=== PATIENT | male | born 1965 | race Caucasian/White ===

== ENCOUNTER → 2024-06-21 15:44 | Outpatient (REF) | payer OTHER, SELFPAY | LOC: HWRCS 15:44 | PROVIDERS: ATTENDING PHYSICIAN Nurse Practitioner Family | DX: L98.9 Disorder of the skin and subcutaneous tissue, unspecified (principal) | CPT/HCPCS: 93306 ==

== ENCOUNTER 2024-09-09 06:49 | Day surgery (SDC) | payer OTHER, SELFPAY | END 2024-09-09 09:08 | disposition home or self-care (01) | LOC: CATH 06:49 | PROVIDERS: ATTENDING PHYSICIAN Internal Medicine Cardiovascular Disease; FAMILY PHYSICIAN Nurse Practitioner Family; OTHER PHYSICIAN Internal Medicine Cardiovascular Disease | DX: I08.1 Rheumatic disorders of both mitral and tricuspid valves (principal); I70.0 Atherosclerosis of aorta | CPT/HCPCS: 93312; 93320; 93325 ==

== ENCOUNTER → 2024-09-16 13:26 | Outpatient (REF) | payer OTHER, SELFPAY | LOC: RCS 13:26 | PROVIDERS: ATTENDING PHYSICIAN Internal Medicine Cardiovascular Disease; FAMILY PHYSICIAN Nurse Practitioner Family | DX: I34.0 Nonrheumatic mitral (valve) insufficiency (principal) | CPT/HCPCS: 93017; 93350 ==

== ENCOUNTER → 2024-11-25 14:55 | Outpatient (REF) | payer OTHER, SELFPAY | LOC: RAD 14:55 | PROVIDERS: ATTENDING PHYSICIAN Thoracic Surgery (Cardiothoracic Vascular Surgery); FAMILY PHYSICIAN Nurse Practitioner Family | DX: I34.0 Nonrheumatic mitral (valve) insufficiency (principal); Z01.818 Encounter for other preprocedural examination | CPT/HCPCS: 71275; 74174; Q9967 ==

== ENCOUNTER 2024-11-28 06:25 | Day surgery (SDC) | payer OTHER, SELFPAY ==
[2024-11-28] VITALS (9 sets, daily range): BP systolic 109–129; BP diastolic 68–91; BMI 27.4
[2024-11-28] MEDS: LOW STRENGTH ASPIRIN 324 MG PO (07:00)
[2024-11-28] MEDS: NSS 500 IV (07:16)
--- NOTE | 2024-11-28 09:49 | ITS.CL.CATH ---
Crew Lead - Catheterization
Cardiac Catheterization
Procedure Report:
LEFT HEART CATHETERIZATION
Date of Procedure: November 28, 2024
Referring: Dr. Denton Jean Baptiste and Dr. Gabriele Schultz
PROCEDURES:
1. Coronary angiography
INDICATION: Severe mitral regurgitation
ACCESS: Right radial artery, 6 Swedish sheath
HEMODYNAMICS : (mmHg)
AO (s/d) : 94/69, 80
CORONARY FINDINGS
DOMINANCE: Right
LEFT MAIN: Short and unobstructed and cannulated with a JL 4 diagnostic catheter
LEFT ANTERIOR DESCENDING: The LAD arises normally from the left main and runs in the anterior interventricular groove. The LAD is widely patent over its course
CIRCUMFLEX: The circumflex is a large-caliber nondominant vessel supplying a small OM1 and OM 2. The circumflex terminates in a sizable terminal obtuse marginal branch which is widely patent
RIGHT CORONARY ARTERY: The right coronary artery is a large-caliber dominant vessel cannulated with an AR mod catheter. The RCA is widely patent and the PDA is large
RADIATION SUMMARY: Fluoro Time (min): 6.1, Dose (mGy): 346, DAP (Gy.cm2) : 24.0
Closure Device: TR band
CONCLUSIONS
1. Nonobstructive coronary disease
RECOMMENDATIONS
1. Planned surgery for mitral regurgitation early in December
Copy to: Dr. Gabriele Schultz
[2024-11-28] MEDS: TYLENOL 650 MG PO (09:55)
[2024-11-28] MEDS: NSS 1000 IV (10:15)
== END 2024-11-28 12:31 | disposition home or self-care (01) ==
LOC: CATH 06:25
PROVIDERS: ATTENDING PHYSICIAN Internal Medicine Interventional Cardiology; FAMILY PHYSICIAN Nurse Practitioner Family; OTHER PHYSICIAN Internal Medicine Cardiovascular Disease
DX: I34.0 Nonrheumatic mitral (valve) insufficiency (principal); I25.10 Atherosclerotic heart disease of native coronary artery without angina pectoris; G47.33 Obstructive sleep apnea (adult) (pediatric)
CPT/HCPCS: 93454; C1894; Q9967

== ENCOUNTER 2024-12-20 04:56 | Inpatient (IN) | payer OTHER, SELFPAY ==
[2024-11-21 12:05] VITALS: BMI 28.4
[2024-11-21 12:35] LABS: % Basophils 0.5 % (0-2); % Eosinophils 2.4 % (0-6); % Immature Granulocytes 0.2 % (0-0.5); % Lymphocytes 29.4 % (20.5-51.1); % Monocytes 7.2 % (1.7-9.3); % Neutrophils 60.3 % (42.2-75.2); Absolute Basophils 0.1 10^3/uL (0-0.2); Absolute Eosinophils 0.2 10^3/uL (0-0.7); Absolute Lymphocytes 2.8 10^3/uL (1.2-3.4); Absolute Monocytes 0.7 10^3/uL (0.1-0.6); Absolute Neutrophils 5.8 10^3/uL (1.4-6.5); Hematocrit 43.7 % (39.0-52.0); Mean Corp Hgb Conc. 34.3 g/dL (33.0-37.0); Mean Corpuscular Hgb 30.8 pg (27.0-31.0); Mean Corpuscular Volume 89.7 fL (80.0-94.0); Mean Platelet Volume 9.5 fL (7.4-10.4); Nucleated Red Blood Cells % 0 % (-); Platelet Count 259 10^3/uL (130-400); Red Blood Cell Count 4.87 10^6/uL (4.70-6.10); Red Cell Dist. Width 12.2 % (11.5-14.5); White Blood Cell Count 9.6 10^3/uL (4.8-10.8)
[2024-11-21 12:47] LABS: INR 1.04; PT 13.9 Sec (11.4-14.6)
[2024-11-21 13:04] LABS: ALT (SGPT) 23 U/L (0-50); AST (SGOT) 22 U/L (17-59); Albumin 4.3 g/dl (3.5-5.0); Alkaline Phosphatase 65 U/L (38-126); Blood Urea Nitrogen 17 mg/dl (9-20); Calcium 9.1 mg/dl (8.4-10.2); Carbon Dioxide 27 mmol/L (22-30); Chloride 100 mmol/L (98-107); Estimated Creatinine Clearance 84 ml/min; Glucose 83 mg/dl (70-99); Potassium 4.6 mmol/L (3.5-5.1); Sodium 135 mmol/L (135-145); Total Bilirubin 0.5 mg/dl (0.2-1.3); eGFR > 60.00
--- NOTE | 2024-11-21 13:17 | CM ---
Met with and Mrs. Webb in [facility]. He states prior to admission he resides with his spouse in a spilt-level home with six steps to enter. He states he has six steps to get to his bedroom and full bathroom. The powder room is on the first
floor and he has six steps to get to the lower level. He states prior to admission he was independent with ambulation and adls. He states he does not have any DME in the home. He states he has a prescription plan. His spouse states she works from
home and will be available to assist in his care if needed. The discharge plan is to return home with his spouse and a home visit by the Transitional Care Nurse when medically stable.
We reviewed pre-op and post- op routines. We reviewed the shower instructions. He has the soap, written instructions and the Cardiothoracic Thoracic Surgery Educational Booklet. We also reviewed restrictions including lifting and driving
restrictions. We discussed a home visit by the Transitional Care Nurse. He is agreeable to a home visit. The plan is for HP Mitral Valve Repair on 12/20/24.
[2024-11-21 13:30] LABS: Urine Albumin Negative (Neg - Trace); Urine Bilirubin Negative (Negative); Urine Character Clear (Clear); Urine Color Yellow; Urine Glucose Negative (Negative); Urine Ketone Negative (Negative); Urine Leukocyte Negative (Negative); Urine Nitrite Negative (Negative); Urine Occult Blood Negative (Negative); Urine Urobilinogen Negative (Neg - 1+)
[2024-11-21 15:17] LABS: Glycohemoglobin (HgbA1c) 5.7 % (4.0-5.6)
[2024-12-20 05:01] VITALS: BP 141/98
[2024-12-20 05:04] VITALS: BP 138/98
[2024-12-20 05:17] VITALS: BMI 26.5
[2024-12-20] MEDS: BACTROBAN 2% OINTMENT 1 APPLIC NASAL ×2 (05:25→19:28)
[2024-12-20] MEDS: LOPRESSOR 25 MG PO (05:25)
[2024-12-20] MEDS: PROTONIX 40 MG PO (05:25)
[2024-12-20] MEDS: MAGNESIUM OXIDE 500 MG PO (05:25)
--- NOTE | 2024-12-20 05:47 | PTCARENOTE ---
pt admitted into CVICU room 2266. pt confirmed 2 showers at home. pt clipped and prepped for CVOR. pre-op meds given. pre-op education provided. all questions answered. assistant construction superintendent to CVOR.
--- NOTE | 2024-12-20 06:22 | W.CVOR.SURPR ---
CVOR Surgeon Immed Pre Op
-
I have examined this patient prior to performance of the scheduled procedure.
The patient's condition is unchanged from the time of the dictated/written History and
Physical and the patient is able to undergo the scheduled procedure.
MV repair + TV repair +/- IWONA Clip
[2024-12-20 07:41] LABS: ACT+ - POC 87 Seconds (82-134)
[2024-12-20 08:12] LABS: Urine Albumin 1+ (Neg - Trace); Urine Bilirubin Negative (Negative); Urine Character Clear (Clear); Urine Color Yellow; Urine Glucose Negative (Negative); Urine Ketone Negative (Negative); Urine Leukocyte Negative (Negative); Urine Nitrite Negative (Negative); Urine Occult Blood Negative (Negative); Urine Urobilinogen Negative (Neg - 1+)
[2024-12-20 08:46] LABS: Urine Amorphous Seen
[2024-12-20 08:46] LABS: ACT+ - POC 435 Seconds (82-134)
[2024-12-20 08:47] LABS: Urine Red Blood Cell 0-2 /HPF (0-2); Urine White Cell 0-2 /HPF (0-5)
[2024-12-20 09:11] LABS: B.E. - POC -0.4 mmol/L; Glucose - POC 111 mg/dl (70-99); HCO3 - POC 25 mmol/L (21-28); Hematocrit - POC 37 % PCV (42-52); Hemodilution- POC Yes; Hemoglobin Calculated - POC 12.4; Ionized Calcium - POC 1.25 mmol/L (1.15-1.33); O2 Saturation %Calculated-POC 99.8 % (94-98); PCO2 - POC 41 mmHg (35-48); PO2 - POC 227 mmHg (83-108); POC Comment PRE; Potassium - POC 4.1 mmol/L (3.5-5.1); Sodium - POC 139 mmol/L (136-145); Specimen Type - POC Arterial; pH - POC 7.39 (7.35-7.45)
[2024-12-20 09:24] LABS: ACT+ - POC 581 Seconds (82-134)
[2024-12-20 09:46] LABS: B.E. - POC -0.5 mmol/L; Glucose - POC 163 mg/dl (70-99); HCO3 - POC 25 mmol/L (21-28); Hematocrit - POC 26 % PCV (42-52); Hemodilution- POC Yes; Hemoglobin Calculated - POC 8.7; Ionized Calcium - POC 1.06 mmol/L (1.15-1.33); PCO2 - POC 44 mmHg (35-48); PO2 - POC 384 mmHg (83-108); POC Comment CPB; Potassium - POC 5.7 mmol/L (3.5-5.1); Sodium - POC 133 mmol/L (136-145); Specimen Type - POC Arterial; pH - POC 7.36 (7.35-7.45)
[2024-12-20 09:55] LABS: ACT+ - POC 550 Seconds (82-134)
[2024-12-20 09:59] LABS: B.E. - POC -1.4 mmol/L; Glucose - POC 173 mg/dl (70-99); HCO3 - POC 27 mmol/L (21-28); Hematocrit - POC 29 % PCV (42-52); Hemodilution- POC Yes; Hemoglobin Calculated - POC 9.7; O2 Saturation %Calculated-POC 97.7 % (94-98); PCO2 - POC 67 mmHg (35-48); PO2 - POC 122 mmHg (83-108); POC Comment CPB; Sodium - POC 139 mmol/L (136-145); Specimen Type - POC Arterial; pH - POC 7.22 (7.35-7.45)
[2024-12-20 10:14] LABS: ACT+ - POC 527 Seconds (82-134)
--- NOTE | 2024-12-20 10:35 | CM ---
pt in OR today, cm following
[2024-12-20 10:43] LABS: ACT+ - POC 459 Seconds (82-134)
[2024-12-20] MEDS: ANCEF 10 IV ×2 (10:45→12:07)
[2024-12-20 10:53] LABS: B.E. - POC -2.6 mmol/L; Glucose - POC 138 mg/dl (70-99); HCO3 - POC 23 mmol/L (21-28); Hematocrit - POC 27 % PCV (42-52); Hemodilution- POC Yes; Hemoglobin Calculated - POC 9.3; Ionized Calcium - POC 3.64 mmol/L (1.15-1.33); O2 Saturation %Calculated-POC 99.9 % (94-98); PCO2 - POC 40 mmHg (35-48); PO2 - POC 297 mmHg (83-108); POC Comment WARM; Potassium - POC 4.8 mmol/L (3.5-5.1); Sodium - POC 138 mmol/L (136-145); Specimen Type - POC Arterial; pH - POC 7.36 (7.35-7.45)
[2024-12-20 10:53] LABS: B.E. - POC -0.4 mmol/L; Glucose - POC 149 mg/dl (70-99); HCO3 - POC 26 mmol/L (21-28); Hematocrit - POC 29 % PCV (42-52); Hemodilution- POC Yes; Hemoglobin Calculated - POC 9.8; Ionized Calcium - POC 1.15 mmol/L (1.15-1.33); PCO2 - POC 47 mmHg (35-48); PO2 - POC 403 mmHg (83-108); POC Comment CPB; Potassium - POC 4.8 mmol/L (3.5-5.1); Sodium - POC 138 mmol/L (136-145); Specimen Type - POC Arterial; pH - POC 7.35 (7.35-7.45)
[2024-12-20 10:58] LABS: ACT+ - POC 104 Seconds (82-134)
[2024-12-20 11:16] LABS: B.E. - POC -2.5 mmol/L; Glucose - POC 121 mg/dl (70-99); HCO3 - POC 24 mmol/L (21-28); Hematocrit - POC 33 % PCV (42-52); Hemodilution- POC Yes; Hemoglobin Calculated - POC 11.1; Ionized Calcium - POC 1.45 mmol/L (1.15-1.33); O2 Saturation %Calculated-POC 95.4 % (94-98); PCO2 - POC 51 mmHg (35-48); PO2 - POC 88 mmHg (83-108); POC Comment POST; Potassium - POC 3.8 mmol/L (3.5-5.1); Sodium - POC 141 mmol/L (136-145); Specimen Type - POC Arterial; pH - POC 7.29 (7.35-7.45)
--- NOTE | 2024-12-20 11:29 | W.PN.CT.SURG ---
CT Surgery Operative Note
-
CARDIAC SURGERY OPERATIVE REPORT
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
Postoperative Diagnosis: Same
Procedure(s) Performed:
1. Right mini thoracotomy with right femoral artery and vein cannulation under KORIN guidance
2. Radical mitral valve repair (triangular resection of the medial segment of P2 and imbrication of P2 onto P3, free edge remodeling, single [place] cord to the posterior medial papillary muscle head to P2 and P3, 34 mm band annuloplasty)
3. Placement temporary ventricular pacing wires
4. Trans esophageal echocardiography
5. Atrial septal defect closure [PFO closure]
6. Left atrial appendage exclusion [35 mm clip]
Date of Surgery: 12/20/2024
Comorbidities:
1. 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
2. Obstructive sleep apnea
3. BPH
4. Atrial septal defect
5. Severe mitral valve insufficiency, symptomatic
Attending Surgeon: Denton Jean Baptiste MD, MS
Assistants: Delia Ford PA-C (present and necessary for retraction, suctioning, exposure, suture management, wound closure, etc. under my direction)
Anesthesiology: Angel Clinton MD and Sirni Maldonado CRNA
Scrub and Circulating RNs: Betty Marie RN, Ayush Paredes RN
Production Support Analyst: Ross Martino CCP
Anesthesia: GETA
EBL: per perfusion records
Products: None
CPB Time: 112 minutes
Aortic Cross Clamp Time: 82 minutes
Indication(s) for Procedures: This is a 59-year-old male who has known mitral valve insufficiency. His mitral valve regurgitation was severe and he was developing some symptoms in the form of shortness of breath and some dizziness during exertion.
Overall he is in excellent clinical health at baseline. Given his age, mitral valve pathology, and severity of mitral valve insufficiency he met indication for surgical intervention in the form of mitral valve repair.
Mitral Valve Description: Thickened anterior and posterior leaflets, flail segment of the P2 scallop with multiple torn cords, large cleft between P2 and P3 and redundant leaflet tissue, annular dilation.
Implants:
1. 34 mm Lacy physio flex annuloplasty band, SN [id number]
2. Multiple 5-0 Prolene sutures
3. Single CV 4 [place] suture
4. Left atrial appendage clip, 35 mm, serial #[id number]
Specimen:
1. P2 scallop, flail segment
Findings: His left ventricular ejection fraction preoperatively was normal at 60% with no regional wall motion abnormalities. Following surgery his EF remained the same at 60 to 65% with no new regional wall motion abnormalities. His mitral valve
was repaired by resecting the medial aspect of P2 and then imbricating the remnant P2 onto P3 effectively limiting the cleft. A single CV 4 [place] was anchored to the posterior medial papillary muscle head and then fixed onto the P2 P3 interface.
Multiple 5-0 Prolene sutures were used to reapproximate the leaflets. A total of 10 nonpledgeted 2 Ethibond sutures were used to anchor a 34 mm band annuloplasty from trigone to trigone. Dynamic inflation of the LV with saline demonstrated good
coaptation margin and ink test along the coaptation line revealed good coaptation height and a posterior coaptation margin. He had a very large PFO that was approximately 1 cm in length with a significant amount of blood able to cross from right to
left. A baseball stitch was then used to close off this PFO using 5-0 Prolene and then anchored with a micro core knot. Inflation of the right atrium demonstrated no residual leak which was later confirmed on echocardiography. His left atrial
appendage was verified to be free of any thrombus or debris preoperatively and clipped with a 35 mm V clip flush to the base. After coming off cardiopulmonary bypass there is no systolic anterior motion the leaflets, no residual mitral valve
insufficiency, mean gradient of 1 across the mitral valve repair. His cardiac index had improved from 1.8 preoperatively to 2.8 postoperatively without any inotropic support. He was in sinus rhythm and did not require any pacing. He did not
require any blood products. His PFO was found to be closed on transesophageal echocardiography and there was no residual flow in his left atrial appendage. He had only trace to mild TR at best with no significant dilation of his atrium or his
annulus and so this was left.
Description of Procedure: The patient was brought to the operating room and placed supine in the table with their right side bumped up and right arm down. Arterial and central access was performed by anesthesiology. The patient was prepped from chin
to toes in the typical sterile fashion. Trans esophageal evaluation of cardiac function and all valvular structures was conducted. Before commencing, a time out was performed by all members of the team. All were in agreement with the procedure and
laterality and I proceeded. A small right groin incision was made to expose the common femoral artery and vein. A total of 55,000 units of heparin was given. A 5-6 cm right lateral thoracotomy was performed over the 4th intercostal space verified by
visualization of the hilum. The common femoral artery and vein were cannulated under transesophageal guidance using open Seldinger technique. The arterial line was verified to have an appropriate bounce and pressure correlating with testing. Once
the ACT was above 400, retrograde autologous priming was done and we commenced cardiopulmonary bypass. Target core temperature was 34�C.
Carbon dioxide was used to flood the field. The course of the phrenic nerve was identified to prevent injury. The pericardium was opened and two stay sutures were placed to facilitate a ``pericardial table.�� The oblique sinus was developed followed
by the inter atrial groove. An antegrade root vent was inserted and secured with a pursestring suture. The pump flow and mean arterial pressure were lowered and an aortic cross clamp was applied to the ascending aorta. A total of 1.2L initial dose
of Antegrade cardioplegia was delivered. We had rapid electro myocardial quiescence at 300 cc of cardioplegia. The ventricle was monitored for distension by echocardiogram during this time. The left atrium was incised and enlarged. A left atrial
lift retractor was placed. At this point there was significant amount of dark blood coming from the interatrial septum across the PFO. Using a 5-0 Prolene suture and I performed a baseball stitch as well as a second [id number] stitch and
secured it with a micro core knot. There is no residual shunt that was visible at that point. The mitral valve was inspected. The mitral valve was repaired as described above. With the left atrial lift retractor removed, I was able to see the
left atrial appendage across the transverse sinus which was then clipped with a 35 mm V clip. The left atriotomy was closed with 3-0 prolene in a running fashion leaving a ventricular vent in place to de-air. After filling the heart, the vent was
removed and the prolene was secured with a corknot. Unipolar ventricular pacing wire was placed on the base of the right ventricle. The patient was placed into Trendelenburg position and pump flows were lowered. The clamp was slowly removed with
the root vent turned on. De-airing maneuvers were performed. We started to rewarm with a target of 36.5�C.
As the heart recovered, the mitral valve and ventricular function were assessed under transesophageal echocardiogram. The LV vent and root vents were removed. Once weaning parameters were satisfactory, cardiopulmonary bypass flow was lowered until
we were off cardiopulmonary bypass the mitral valve was inspected again. All surgical sites were inspected for hemostasis and appeared appropriate. The lines were clamped and the arterial was relocated to the venous cannula to give back volume. A
test dose of protamine was delivered and patient was monitored for any adverse reactions followed by complete protamine dosing. The femoral vessels were decannulated and repaired as indicated. The pericardium was approximated with 2-0 ethibond
sutures secured with corknots. One 19F Alex drain remained in the pleural space and threaded into the pericardium pericardium. There was an excellent palpable distal to the ETIOLOGY TEACHER cannulation site. Local analgesia was injected to the thoracotomy. The
rib space was approximated with #2 ethibond suture. The incision was closed in layers in a running fashion.
All instrument, sponge, and needle counts were confirmed to be correct x 2 at the end of the operation. The patient was transferred to the cardiac intensive care unit in critical but stable condition.
I, Dr. Denton Jean Baptiste, was present, scrubbed for, and performed all critical elements of this procedure.
Denton Jean Baptiste MD, MS
Cardiothoracic Surgeon
[facility]
This dictation was created using the StyleChat by [employer] dictation system. Please excuse any grammatical, typographical, or 'sound alike' errors
[2024-12-20 11:33] LABS: Glucose - Point of Care 117 mg/dl (70-99)
--- NOTE | 2024-12-20 11:35 | W.PN.CARDCBS ---
Addendum entered and electronically signed by Ganga Hess MD 12/20/24 14:32:
Attending addendum: Patient seen and examined. PA note reviewed and findings confirmed by me. He is awake and interactive post op. Is appropriate and fully interactive.
Gen: Awake, alert, oriented
HEENT: NC/AT, sclera anicteric
Lungs: Clear anterior and lateral lung smyth.
Chest: Right minithoracotomy well approximated
CV: RRR
Ext: No edema
RECOMMENDATIONS:
-Doing well post op
-Will continue to follow
Original Note:
Today's Communication / Plan
-
continue post op care
in SR
Impression / Plan
-
Primary Electronic Device Monitor: Dr. Schultz
Assessment:
Severe, symptomatic MR s/p Radial MV repair via R mini thoracotomy, PFO closure, IWONA clip 12/20/24
BPPV
STACY
BPH
KORIN 09/09/24: EF 65%, mildly dilated LA, moderate prolapse of posterior mitral leaflet present at P2/P3, eccentric jet of severe MR present, mild TR
Plan:
-s/p Radial MV repair via R mini thoracotomy, PFO closure, IWONA clip 12/20/24
-intubated, sedated
-off pressors. remains on insulin
-EKG SR. follow on tele
-hgb 12.5. follow post op
-continue post op care
-d/w nursing
Progress Note - Electronic Device Monitor
Subjective
Date of Service: December 20, 2024
intubated, sedated
Objective
Labs:
Labs
Hgb 15.0 g/dL (13.0-18.0) 11/21/24 12:14
Hct 43.7 % (39.0-52.0) 11/21/24 12:14
Plt Count 259 10^3/uL (130-400) 11/21/24 12:14
PT 13.9 Sec (11.4-14.6) 11/21/24 12:14
INR 1.04 11/21/24 12:14
APTT 26.0 Sec (23.4-35.0) 11/21/24 12:14
Sodium 135 mmol/L (135-145) 11/21/24 12:14
Potassium 4.6 mmol/L (3.5-5.1) 11/21/24 12:14
BUN 17 mg/dl (9-20) 11/21/24 12:14
Creatinine 1.0 mg/dL (0.7-1.3) 11/21/24 12:14
Glucose 83 mg/dl (70-99) 11/21/24 12:14
Vital Signs and I&O:
Vital Signs
Temp Pulse Resp BP Pulse Ox
98.2 F 75 14 141/98 97
12/20/24 05:50 12/20/24 11:30 12/20/24 11:30 12/20/24 05:25 12/20/24 11:30
Vital Signs
Temp Pulse Resp BP Pulse Ox
98.2 F 75 14 141/98 97
12/20/24 05:50 12/20/24 11:30 12/20/24 11:30 12/20/24 05:25 12/20/24 11:30
Physical Exam
Physical Exam
GEN: No distress, intubated
HEENT: supple, mmm
LUNGS: CTA B/L, no wheezes
CV: Reg, S1/S2, no murmur
EXT: No cyanosis, clubbing, edema
NEURO: sedated
SKIN: Warm, pink, dry. No rash. R chest and R groin incisions c/d/i. CT in place R lat chest.
[2024-12-20 11:37] LABS: B.E. -3.4 mmol/L; HCO3 21.4 mmol/L (21-28); Hematocrit 35.4 % (39.0-52.0); Hemoglobin 12.5 g/dL (13.0-18.0); Ionized Calcium 1.21 mMOL/L (1.15-1.33); O2 Saturation % 99.3 % (94-98); PCO2 37 mmHg (35-48); PO2 139 mmHg (83-108); Platelet Count 160 10^3/uL (130-400); Potassium 3.7 mMOL/L (3.5-5.1); Sodium 136 mMOL/L (136-145); pH 7.37 (7.35-7.45)
[2024-12-20 11:46] LABS: INR 1.34; PT 16.8 Sec (11.4-14.6)
[2024-12-20 11:47] LABS: APTT 25.5 Sec (23.4-35.0)
[2024-12-20 11:59] LABS: Blood Urea Nitrogen 16 mg/dl (9-20); Estimated Creatinine Clearance 93 ml/min; Glucose 115 mg/dl (70-99); Magnesium 3.4 mg/dl (1.6-2.3)
--- NOTE | 2024-12-20 12:00 | PTCARENOTE ---
received patient from cvor. sedated but extubated on simple face mask. apneic periods noted. CTx1. SR. V wires present not pacing. VSS. only insulin infusing. CI >2. Usual lines. labs drawn and sent ekg and cxr done and will continue to monitor.
--- NOTE | 2024-12-20 12:05 | W.PN.UPDATE ---
Update Note
Progress Note Update
59-year-old male was electively admitted on 12/20/2024 for mitral valve repair.
IV fluids: 1700
U.O.:� 500
UF:� 860
Blood:�None
Wires:�2V wires
Inotropes:�None
Pressors:�None
Sedatives:�None
�
NEURO: drowsy, pupils +2mm B/L
RESP: Lungs clear B/L. R pleural (5cc on arrival) chest tubes to -20cm suction. Sanguineous drainage
CV: RRR +S1, S2, no S3, no�rub, no murmur. Dermabond to many right anterior thoracotomy. RIJ w/[place] locked @ 50cm. PA 33/17; CVP 14; C.O XX/CI XX
ABD: round, soft, no BS
EXT: no edema, +2/4 DP pulses B/L, no femoral bruit, left radial A-line intact
: Fernandez with clear yellow urine
�
A/P: POD #0 s/p radical mitral valve repair (triangular resection of the medial segment of P2 and imbrication of P2 onto P3, free edge remodeling, single [place]-Timbo cord to the posterior medial papillary muscle head to P2 and P3, #34 mm band
annuloplasty), atrial septal defect closure [PFO closure], Left atrial appendage exclusion [#35 mm clip]
KORIN: EF�
- extubated in OR
- will need instruction regarding antibiotic prophylaxis for dental and invasive procedures
- ASA only for mitral repair
�
# acute surgical blood loss anemia-expected
- trend CBC
�
�
# Hyperglycemia (A1C 5.7)-expected
- insulin infusion x 24h
�
[2024-12-20] MEDS: NSS 500 IV (12:06)
[2024-12-20] MEDS: NOVOLOG FLEXPEN SC ×3 (12:06→15:21)
[2024-12-20] MEDS: NEURONTIN PO (12:06)
[2024-12-20] MEDS: DILAUDID 0.25 MG IV ×4 (12:15→23:19)
[2024-12-20] MEDS: KCL 50 IV (12:20)
[2024-12-20 12:29] LABS: Glucose - Point of Care 181 mg/dl (70-99)
--- NOTE | 2024-12-20 13:01 | CON.INTV ---
Consultation
Consultation Request
Date/Time Consultation Requested: 12/20/2024-1:30 PM
Date/Time Consultation Performed: 12/20/2024-1:30 PM
Requesting Provider: Dr. Jean Baptiste
Performing Provider: Dr. Lgoan
Reason for Consultation: Postoperative critical care management
Medical History
-
Chief Complaint: Multiple torn cords mitral valve
History of Present Illness:
59-year-old non-smoking male with a history of BPH and untreated STACY noted to have severe mitral valve insufficiency and underwent radical mitral valve repair as well as atrial septal defect closure-space controller consulted for postoperative critical
care management 12/20/2024. Patient was successfully extubated. He has some incisional and chest tube site pain. Overall it is controlled. He denies any shortness of breath at rest, chest congestion, productive cough, abdominal pain, nausea, leg
swelling or focal weakness. He reports having sleep apnea that was 'severe' but he could not tolerate CPAP because it dried his mouth out too much. Last time he tried was nearly 10 years ago.
Past Medical History
Past Medical History: None (STACY-severe, tried CPAP 2017-intolerant. BPH. Mitral regurgitation.)
Social History
Tobacco: Non-smoker
Alcohol: Occasional
Drug: None
Personal:
Living: With Family
Occupational Exposures: No known asbestos exposure
Environmental Exposures: No known tuberculosis exposure
Family History
Family History: Reviewed & Not Pertinent and Other (Father-prostate cancer. Brother-CHF.)
Allergies / Home Medications
Allergies
Allergy/AdvReac Type Severity Reaction Status Date / Time
No Known Allergies Allergy Verified 11/28/24 06:59
Home Medications
�Medication �Instructions �Recorded �Confirmed �Last Taken �Type
No Meds [No Current Medications] 11/17/24 11/28/24 Unknown History
Review of Systems
-
Unable to Obtain full review of systems at this time due to: Other (Per HPI)
Vitals / Labs / Diagnostic Testing
Vital Signs
Temp Pulse Resp BP Pulse Ox
96.5 F L 73 15 141/98 96
12/20/24 12:00 12/20/24 12:16 12/20/24 12:16 12/20/24 05:25 12/20/24 12:58
Lab Data
12/20/24 11:27
Laboratory Results
12/20/24
11:27
PT 16.8 H
INR 1.34
APTT 25.5
pH 7.37
pCO2 37
pO2 139 H
HCO3 21.4
O2 Delivery Level
Diagnostic Testing:
Physical Exam
-
Exam:
Well-nourished and well-developed in no apparent distress
HEENT-atraumatic, normocephalic
Neck-supple, no JVD, no bruit
Heart-regular rate and rhythm-no murmurs, rubs or gallops
Chest-clear to auscultation, no wheezes, crackles, chest tube noted, minimal drainage
Abdomen-soft, nontender, nondistended, no hepatosplenomegaly
Extremities-no cyanosis, clubbing, edema and good peripheral pulses
Integument-intact, no rashes, lesions or ecchymosis
Neurology-alert and oriented, nonfocal motor and sensory exam
Assessment
-
59-year-old non-smoking male with a history of BPH and untreated STACY noted to have severe mitral valve insufficiency and underwent radical mitral valve repair as well as atrial septal defect closure-space controller consulted for postoperative critical
care management 12/20/2024.
Severe symptomatic mitral regurgitation with myxomatous mitral valve degeneration, type II pathology with flail segment and multiple torn cords of P2
Status post radical mitral valve repair, atrial septal defect closure-PFO closure, left atrial appendage exclusion-Dr. Jean Baptiste 12/20/2024
Mild anemia
Mild hyperglycemia
Conditions present prior to admission:
STACY-severe, tried CPAP 2017-intolerant.
BPH.
Mitral regurgitation.
Plan
Patient tolerated extubation
FiO2 will be weaned
Incentive spirometry
Nebulizers if needed
Pulmonary artery catheter parameters will be followed
Pressors/antihypertensive/inotropes/diuretics will be provided as needed
Monitor chest tube output
Monitor hemoglobin
Monitor platelet count and coags
Transfuse blood product if needed
CT surgery following chest tubes
Monitor blood sugar
Insulin drip per protocol
Aspiration precautions
VAP prevention protocol
DVT prophylaxis
Early nutrition
Early mobilization
Patient with a history of severe sleep apnea 2016-malcolm Aquino-CPAP intolerant-reviewed associations with untreated sleep apnea and treatment options-willing to [id number] place follow-up at time of discharge
Critical care statement: A total of 50 minutes of critical care time was provided for this patient today. This includes management of ventilator, spontaneous breathing trial, arterial blood gases, pressors, of unstable vital signs, evaluation of the
patient at bedside, reviewing the patient's pertinent medical records including radiographs, microbiology, laboratory evaluations, and discussion with primary team and critical care nursing.
Diagnostic data:
Chest x-ray 12/20/2024-postoperative chest, no consolidations, pleural effusions or pneumothorax
CT chest abdomen and pelvis 11/25/2024-no significant atherosclerotic changes appreciated, mild prostatic enlargement
Stress echocardiogram 09/16/2024-resting EF 55-60%, postexercise EF 65-70%, negative for ischemia
Cardiac catheterization 11/28/2024-nonobstructing coronary artery disease
Data Reviewed
-
EKG: Report reviewed by me
Radiology: Report reviewed by me
CT Scan: Report reviewed by me
Medical Tests (Nuc Med, Echo etc): Report reviewed by me
Labs: Labs reviewed by me
Old Records: Reviewed
Critical Care Time (in minutes): 50
[2024-12-20 13:38] LABS: Glucose - Point of Care 138 mg/dl (70-99)
[2024-12-20] MEDS: DILAUDID 0.5 MG IV (13:42)
[2024-12-20] MEDS: TYLENOL 1000 MG PO ×2 (13:56→21:09)
[2024-12-20 15:00] LABS: Glucose - Point of Care 101 mg/dl (70-99)
[2024-12-20] MEDS: PACERONE 200 MG PO (15:17)
[2024-12-20] MEDS: NEURONTIN 100 MG PO ×2 (15:17→21:09)
[2024-12-20 16:39] LABS: Glucose - Point of Care 154 mg/dl (70-99)
[2024-12-20 17:21] LABS: Hematocrit 34.1 % (39.0-52.0); Hemoglobin 12.1 g/dL (13.0-18.0); Platelet Count 170 10^3/uL (130-400)
[2024-12-20] MEDS: LOW STRENGTH ASPIRIN 81 MG PO (18:26)
[2024-12-20] MEDS: ANCEF 5 IV (18:26)
[2024-12-20 18:32] LABS: Glucose - Point of Care 179 mg/dl (70-99)
[2024-12-20] MEDS: ZOFRAN 4 MG IV (19:18)
[2024-12-20] MEDS: SENOKOT-S 1 TABLET PO (19:28)
[2024-12-20 19:57] VITALS: BP 91/73
[2024-12-20 20:04] LABS: Glucose - Point of Care 142 mg/dl (70-99)
--- NOTE | 2024-12-20 20:43 | PTCARENOTE ---
Assumed care of pt from dayshift RN. Walking rounds completed. Pt AAOx3. ESTEVES. Following commands appropriately. SR to sinus ward on the tele monitor. Temporary epicardial v-wires in place and set to backup rate of 30. HR high 40s - 70s. BP
100s-110s/50s. CVP ~6-10. PAPs 20s/10s. Palpable pulses throughout. Pt on 3 L NC. POX 95-97%. Lung sounds diminished B/L. Deep breathing and IS encouraged. Right lateral CTx1 to -20 suction, no airleak or tidaling noted at this time, and output
appropriate. Abdomen soft. Hypoactive BS. Fernandez catheter C/D/I and draining yellow urine. Right upper/lateral chest incision approximated and BARON. Right IJ cordis w/ SWAN intact. Left radial a-line in place. All lines leveled, zeroed, and flushed.
Pt repositioned in bed. Glycemic protocol followed. See worklist for full nursing assessment and interventions. Call monique within reach.
[2024-12-20 21:00] VITALS: BP 102/67
[2024-12-20] MEDS: LR 250 ML IV (21:10)
[2024-12-20 22:00] VITALS: BP 101/66
[2024-12-20 22:11] LABS: Glucose - Point of Care 132 mg/dl (70-99)
[2024-12-20 23:00] VITALS: BP 100/63
[2024-12-21] VITALS (18 sets, daily range): BP systolic 101–147; BP diastolic 63–93; PULSE 63; O2SAT 94–96; BMI 27.7
[2024-12-21] MEDS: FLEXERIL 5 MG PO ×2 (00:11→17:26)
[2024-12-21] MEDS: ANCEF 5 IV ×2 (00:12→09:37)
[2024-12-21 00:29] LABS: Glucose - Point of Care 137 mg/dl (70-99)
--- NOTE | 2024-12-21 00:30 | PTCARENOTE ---
Pt reassessed. Sinus ward to sinus rhythm on the tele monitor. HR 50-80s. Temporary epicardial v-wire intact. No pacer spikes noted. BP 90-100s/50s. CVP ~4-8. PAPs 20-30s/teens. CI > 2. [place] and a-line maintained. All lines leveled, zeroed, and
flushed. Pt on 3 L NC. POX 98%. Right pleural CT assessment unchanged. Fernandez catheter C/D/I and draining yellow urine. Glycemic protocol followed. EKG completed. Pt repositioned in bed. Call monique within reach.
[2024-12-21] MEDS: LR 250 ML IV (01:04)
[2024-12-21] MEDS: ROXICODONE 5 MG PO ×4 (01:04→19:44)
[2024-12-21 01:29] LABS: Glucose - Point of Care 130 mg/dl (70-99)
[2024-12-21 02:03] LABS: Glucose - Point of Care 120 mg/dl (70-99)
[2024-12-21 03:17] LABS: Glucose - Point of Care 109 mg/dl (70-99)
--- NOTE | 2024-12-21 03:24 | PTCARENOTE ---
No acute change in assessment. Pt Sinus to sinus ward on the tele monitor. CVP ~10. PAP 30s/teens. CI >2. BPs 90-120s/60s. Thelma and left a-line intact. All lines leveled, zeroed, and flushed. Pt 96% on [address] assessment unchanged. Pt
repositioned. Labs drawn and sent. Glycemic protocol followed. Call monique within reach.
[2024-12-21 03:30] LABS: Hematocrit 32.2 % (39.0-52.0); Hemoglobin 11.2 g/dL (13.0-18.0); Mean Corp Hgb Conc. 34.8 g/dL (33.0-37.0); Mean Corpuscular Hgb 31.8 pg (27.0-31.0); Mean Corpuscular Volume 91.5 fL (80.0-94.0); Platelet Count 156 10^3/uL (130-400); Red Blood Cell Count 3.52 10^6/uL (4.70-6.10); Red Cell Dist. Width 12.8 % (11.5-14.5); White Blood Cell Count 16.5 10^3/uL (4.8-10.8)
[2024-12-21 03:56] LABS: Blood Urea Nitrogen 16 mg/dl (9-20); Calcium 7.9 mg/dl (8.4-10.2); Carbon Dioxide 23 mmol/L (22-30); Chloride 105 mmol/L (98-107); Estimated Creatinine Clearance 120 ml/min; Glucose 100 mg/dl (70-99); Potassium 4.1 mmol/L (3.5-5.1); Sodium 135 mmol/L (135-145); eGFR > 60.00
[2024-12-21] MEDS: CALCIUM GLUCONATE 100 IV (04:12)
--- NOTE | 2024-12-21 04:13 | W.PN.CT ---
Today's Communication / Plan
-
-pod #1
-CI 3.07, CO 6.32. Drips: insulin
-CT output: R pleur/med 75/135 in 12/24 hrs
-rhythm is sinus with hr between high 40s and 80s
-got 500 LR, repleted Ca
-deline
-d/c insulin
-d/c Fernandez
-current meds (ASA, Mg, Protonix). Holding Amio and BB for intermittent bradycardia
-encourage IS, OOB
Assessment / Plan
-
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
appendage exclusion [35 mm clip] on 12/20/[address] Jean Baptiste, pod #1
- Intraop KORIN: LVEF 60% preop and 60-65% postop with no new regional wma. His left atrial appendage was verified to be free of any thrombus or debris preoperatively and clipped with a 35 mm V clip flush to the base. After coming off cardiopulmonary
bypass there is no systolic anterior motion the leaflets, no residual mitral valve insufficiency, mean gradient of 1 across the mitral valve repair. His PFO was found to be closed on transesophageal echocardiography and there was no residual flow in
his left atrial appendage. He had only trace to mild TR at best with no significant dilation of his atrium or his annulus and so this was left.
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
- Obstructive sleep apnea
- BPH
- Atrial septal defect
- Cath 11/28/24 with nonobstructive coronary disease
- Acute postop blood loss anemia - stable, no transfusion
- Acute postop atelectasis
- Acute postop hypovolemia with subsequent hypervolemia
Discussed patient care with: Nursing and Care Team
Subjective
-
Date of Service: December 21, 2024
Objective Data
-
PT 16.8 Sec (11.4-14.6) H 12/20/24 11:27
INR 1.34 12/20/24 11:27
APTT 25.5 Sec (23.4-35.0) 12/20/24 11:27
Vital Signs
Vital Signs
Temp Pulse Resp BP Pulse Ox
99.4 F 52 20 104/63 97
12/21/24 00:00 12/21/24 00:10 12/21/24 00:10 12/21/24 00:00 12/21/24 00:10
CT Intake/Output/Weight
12/20/24 12/20/24 12/21/24
06:59 18:59 06:59
Intake Total 247.9 / 423.1 175.2 / 423.1
Output Total 780 / 1160 380 / 1160
Balance -532.1 / -736.9 -204.8 / -736.9
SaO2: 97
Physical Exam
-
General: Awake and AOx3
Cardiovascular: Regular rate & rhythm, No Murmurs and Rub
Respiratory: Decreased Breath Sounds
Sternum: Stable
Incision: Clean, Dry and Intact
Extremities: No Edema
Abdomen: soft, nontender, nondistended, + decreased bowel sounds
Data Reviewed
-
Lab Results: Results Reviewed
Medications: Active Meds Reviewed
Chest X-Ray: Report Reviewed and Image Reviewed
ECG: Report Reviewed and Image Reviewed
[2024-12-21 04:18] LABS: Glucose - Point of Care 112 mg/dl (70-99)
[2024-12-21 05:03] LABS: Glucose - Point of Care 97 mg/dl (70-99)
[2024-12-21] MEDS: TYLENOL 1000 MG PO ×3 (05:06→22:08)
[2024-12-21 07:15] LABS: Glucose - Point of Care 184 mg/dl (70-99)
[2024-12-21] MEDS: NOVOLOG FLEXPEN 4 UNITS SC ×2 (07:28→17:43)
[2024-12-21] MEDS: BACTROBAN 2% OINTMENT 1 APPLIC NASAL ×2 (07:29→19:43)
[2024-12-21] MEDS: NSS IV (07:31)
--- NOTE | 2024-12-21 07:41 | W.PN.INTV ---
Today's Communication / Plan
Recommendations
deline
Monitor chest tube output
Discontinue insulin drip
Transfer to telemetry-call pulmonary if respiratory issues arise-outpatient sleep apnea workup
Assessment
-
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
care management 12/20/2024.
Severe symptomatic mitral regurgitation with myxomatous mitral valve degeneration, type II pathology with flail segment and multiple torn cords of P2
Status post radical mitral valve repair, atrial septal defect closure-PFO closure, left atrial appendage exclusion-Dr. Jean Baptiste 12/20/2024
Mild anemia
Mild hyperglycemia
Conditions present prior to admission:
STACY-severe, tried CPAP 2017-intolerant.
BPH.
Mitral regurgitation.
Plan
Tolerated extubation
Wean FiO2
Encourage incentive spirometry
Increase activity
Aspiration precautions
Pulmonary artery catheter and arterial line will be removed
Pressors have been weaned
Continue to monitor chest tube output
Follow hemoglobin
Continue to follow platelet count and coags
Transfuse blood product as needed
CT surgery following chest tubes as well
Follow blood sugar
Insulin supplementation continues as needed
Early nutrition
Early mobilization
DVT prophylaxis
Patient with a history of severe sleep apnea 2016-malcolm Aquino-CPAP intolerant-reviewed associations with untreated sleep apnea and treatment options-willing to [id number] follow-up at time of discharge
Patient will be transferred to telemetry phase-call pulmonary if respiratory issues arise
Reviewed the patient's pertinent medical records including radiographs, microbiology, laboratory evaluations, and discussion with primary team, and critical care nursing.
Diagnostic data:
Chest x-ray 12/20/2024-postoperative chest, no consolidations, pleural effusions or pneumothorax
CT chest abdomen and pelvis 11/25/2024-no significant atherosclerotic changes appreciated, mild prostatic enlargement
Stress echocardiogram 09/16/2024-resting EF 55-60%, postexercise EF 65-70%, negative for ischemia
Cardiac catheterization 11/28/2024-nonobstructing coronary artery disease
Subjective Dataa
Subjective Data
Date of Service:
Date of Service: December 21, 2024
Chief Complaint: Parts Clerk Follow Up, Pulmonary Follow Up and Vent Management Follow Up
Subjective:
No complaints of shortness of breath, chest pain or abdominal pain
Review of Systems
General: Other (Per HPI)
Objective Data
Data Reviewed
Vital Signs / I&O / Oxygen:
Vital Signs
Temp Pulse Resp BP Pulse Ox
99.1 F 80 20 115/78 95
12/21/24 04:00 12/21/24 07:00 12/21/24 06:20 12/21/24 07:00 12/21/24 07:00
Intake and Output
12/20/24 12/21/24 12/22/24
06:59 06:59 06:59
Intake Total 572.7 / 583.8 ..
Output Total 1460 / 1510 50 / 50
Balance -887.3 / -926.2 -38.9 / -38.9
SaO2 95
Nasal Cannula flow liters per 2
minute
Physical Exam
General: Respiratory Distress (n) and Comfortable
HEENT: Normocephalic and Anicteric
Cardiovascular: Regular Rhythm
Respiratory: Non-Labored Respirations and Accessory Resp Muscle Use (n)
GI: Soft and Non Distended
Neurology: Awake, Alert and No Motor Deficits
Skin: Warm, Good Color and Cyanosis (n)
Labs/Micro/Reports
Lab Data
12/21/24 03:16
12/21/24 03:16
Laboratory Results
02/11/25
11:27
PT 16.8 H
INR 1.34
APTT 25.5
pH 7.37
pCO2 37
pO2 139 H
HCO3 21.4
O2 Delivery Level
[2024-12-21] MEDS: LIDOCAINE 4% PATCH 1 PATCH TOPICAL (07:58)
[2024-12-21] MEDS: MAGNESIUM OXIDE 500 MG PO ×2 (08:00→19:44)
[2024-12-21] MEDS: LOW STRENGTH ASPIRIN 81 MG PO (08:00)
--- NOTE | 2024-12-21 08:00 | PTCARENOTE ---
resumed care of patient from prev RN. Walking rounds completed. Pt AAOx3. SR to sinus ward on the tele monitor. v-wires set to backup rate of 30/10. + pulses throughout. Pulse ox 95% RA. Lungs diminished. IS 2000. Right lateral CTx1 to -20 wall
suction. no airleak/crepitus. +bs. singh d/c'd and DTV. All surgical sites c/d/i. Right IJ cordis with insulin gtt infusing per glycemic protocol. CT to be pulled today. pain control a goal. will continue ot monitor.
[2024-12-21] MEDS: SENOKOT-S 1 TABLET PO ×2 (08:01→19:44)
[2024-12-21] MEDS: NEURONTIN 100 MG PO ×3 (08:01→22:08)
[2024-12-21] MEDS: PROTONIX 40 MG PO (08:01)
[2024-12-21] MEDS: LOPRESSOR 12.5 MG PO ×2 (08:04→19:57)
[2024-12-21] MEDS: PACERONE 200 MG PO ×3 (08:07→22:08)
--- NOTE | 2024-12-21 08:14 | W.PN.ANS.POP ---
Anesthesia Post Operative
- Anesthesia Post Op Note
Vital Signs Stable-See Nursing Note: Yes
Airway Patent: Yes
Adequate Pain Control: Yes
Change in Mental Status: No
Current Postoperative Nausea & Vomiting: No
Anesthesia Complications: No
General Anesthetic Recall: No
Unplanned Admission: No
Post Op Hydration Adequate: Yes
[2024-12-21 08:15] LABS: Glucose - Point of Care 127 mg/dl (70-99)
[2024-12-21] MEDS: DILAUDID 0.5 MG IV ×2 (08:34→15:30)
[2024-12-21 09:56] LABS: Glucose - Point of Care 94 mg/dl (70-99)
--- NOTE | 2024-12-21 10:48 | CM ---
CM following for DC planning needs.
Pt. POD#[address] Surgery[address]
Reviewed initial assessment. Pt. comes from a split level home w/ spouse. Functionally, patient is indep. w/ ADLs, mobility without the use of any assisted device.
Antic. DC plan is for home w/ CT Transitional Care RN.
Will cont. to follow.
--- NOTE | 2024-12-21 11:04 | W.PN.CARDCBS ---
Addendum entered and electronically signed by Herberth Jenkins MD 12/21/24 11:16:
I saw and examined the patient.
The GRAIN WEIGHER or PA's note was reviewed and I agree with the note.
Comment: General: Well developed, well nourished in NAD.
Neck: Supple, no JVD, HJR, carotids +2 B/L, no bruits bilaterally.
Heart: Non displaced PMI, RRR, no murmurs, No S3, S4, no rubs.
Lungs: Scattered rhonchi
Sternal dressings noted
Extremities: No clubbing, cyanosis or edema bilaterally.
Neuro: Grossly nonfocal, awake, alert and oriented x3.
Stable cardiology status postop mitral valve repair. Remains in sinus rhythm.
Original Note:
Today's Communication / Plan
-
continue post op care
follow BP/HR
Impression / Plan
-
Primary Rag Cutting Machine Operator: Dr. Schultz
Assessment:
Severe, symptomatic MR s/p Radical MV repair via R mini thoracotomy, PFO closure, IWONA clip 12/20/24
BPPV
STACY
BPH
KORIN 09/09/24: EF 65%, mildly dilated LA, moderate prolapse of posterior mitral leaflet present at P2/P3, eccentric jet of severe MR present, mild TR
Plan:
-s/p Radical MV repair via R mini thoracotomy, PFO closure, IWONA clip 12/20/24
-with several episodes overnight of hypotension/bradycardia, suspected vasovagal. in SR on review of tele, occasional SB into 40s transiently overnight. follow on tele. currently back on BB/amio. remains with temp wire in place
-hgb 11.2. continue asa
-continue post op care, OOB/IS as able
-d/w nursing
Progress Note - Rag Cutting Machine Operator
Subjective
Date of Service: December 21, 2024
reports some pain with deep breathing
Objective
Labs:
12/21/24 03:16
12/21/24 03:16
Labs
Hgb 11.2 g/dL (13.0-18.0) L 12/21/24 03:16
Hct 32.2 % (39.0-52.0) L 12/21/24 03:16
Plt Count 156 10^3/uL (130-400) 12/21/24 03:16
PT 16.8 Sec (11.4-14.6) H 12/20/24 11:27
INR 1.34 12/20/24 11:27
APTT 25.5 Sec (23.4-35.0) 12/20/24 11:27
Sodium 135 mmol/L (135-145) 12/21/24 03:16
Potassium 4.1 mmol/L (3.5-5.1) 12/21/24 03:16
BUN 16 mg/dl (9-20) 12/21/24 03:16
Creatinine 0.7 mg/dL (0.7-1.3) 12/21/24 03:16
Glucose 100 mg/dl (70-99) H 12/21/24 03:16
Vital Signs and I&O:
Vital Signs
Temp Pulse Resp BP Pulse Ox
98.9 F 62 20 115/78 94
12/21/24 08:00 12/21/24 08:00 12/21/24 06:20 12/21/24 07:00 12/21/24 08:00
Vital Signs
Temp Pulse Resp BP Pulse Ox
98.9 F 62 20 115/78 94
12/21/24 08:00 12/21/24 08:00 12/21/24 06:20 12/21/24 07:00 12/21/24 08:00
Intake & Output
12/19/24 12/20/24 12/21/24 12/22/24
07:59 07:59 07:59 07:59
Intake Total 583.8 / 583.8 21.8 / 21.8
Output Total 1510 / 1510 350 / 350
Balance -926.2 / -926.2 -328.2 / -328.2
Physical Exam
Physical Exam
GEN: No distress, awake, alert, oriented x3
HEENT: supple, anicteric, mmm, eomi
LUNGS: no audible wheezes
CV: Reg rhythm on tele
EXT: No cyanosis, clubbing, edema
NEURO: Gross non-focal
SKIN: Warm, pink, dry. No rash. R chest incision c/d/i. temp wire in place
[2024-12-21] MEDS: NOVOLOG FLEXPEN SC (13:08)
[2024-12-21 17:43] LABS: Glucose - Point of Care 170 mg/dl (70-99)
--- NOTE | 2024-12-21 20:00 | PTCARENOTE ---
Received pt from [facility]. Walking rounds completed. Pt assessment completed in bed. Pt is AAOx4. No neuro deficits noted. NSR on monitor with PVC's. HR 91, B/P 105/78. Temporary pacing wires intact and disconnected. Pacer box is on and bedside. Set
for 30-10, pulses palpable, generalized trace edema throughout. Lungs clear, POX 93% RA. NBS, abdomen soft, non-tender to touch. pt voiding clear yellow urine. R chest incision approximated, surgical glue present. R C/T dressing scant drainage.
Right groin, approximated, surgical glue present. Discussed plan of care with pt. Pt agrees with plan. Will continue to monitor pt needs.
--- NOTE | 2024-12-21 23:08 | PTCARENOTE ---
VSS. NSR with PVC's on monitor. HR 78, B/P 103/74. POX 97% 2LNC. PM care provided. Pt resting in bed. Will continue to monitor pt needs.
[2024-12-22] VITALS (19 sets, daily range): BP systolic 81–123; BP diastolic 58–89; PULSE 91; O2SAT 91; BMI 27.7
[2024-12-22] MEDS: FLEXERIL 5 MG PO ×2 (03:28→14:38)
[2024-12-22] MEDS: ROXICODONE 5 MG PO ×2 (03:38→16:17)
[2024-12-22 03:46] LABS: Hematocrit 31.9 % (39.0-52.0); Mean Corp Hgb Conc. 34.5 g/dL (33.0-37.0); Mean Corpuscular Hgb 31.8 pg (27.0-31.0); Mean Corpuscular Volume 92.2 fL (80.0-94.0); Platelet Count 148 10^3/uL (130-400); Red Blood Cell Count 3.46 10^6/uL (4.70-6.10); Red Cell Dist. Width 12.9 % (11.5-14.5); White Blood Cell Count 20.1 10^3/uL (4.8-10.8)
--- NOTE | 2024-12-22 03:46 | PTCARENOTE ---
VSS. NSR with PVC's on monitor. HR 73, B/P 123/89. Morning labs obtained and sent. Pt resting in bed. Will continue to monitor pt needs.
--- NOTE | 2024-12-22 03:53 | W.PN.CT ---
Today's Communication / Plan
-
-pod #2
-no significant issues overnight
-no further bradycardia, had some PVCs/bigeminy
-wt is uo 8 lbs- diuese (UO 1150/1700 in 12/24 hrs)
-current meds (ASA, Lopressor, Amio Mg, Protonix)
-encourage IS, ambulate
Assessment / Plan
-
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
appendage exclusion [35 mm clip] on 12/20/[address] Jean Baptiste, pod #2
- Intraop KORIN: LVEF 60% preop and 60-65% postop with no new regional wma. His left atrial appendage was verified to be free of any thrombus or debris preoperatively and clipped with a 35 mm V clip flush to the base. After coming off cardiopulmonary
bypass there is no systolic anterior motion the leaflets, no residual mitral valve insufficiency, mean gradient of 1 across the mitral valve repair. His PFO was found to be closed on transesophageal echocardiography and there was no residual flow in
his left atrial appendage. He had only trace to mild TR at best with no significant dilation of his atrium or his annulus and so this was left.
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
- Obstructive sleep apnea
- BPH
- Atrial septal defect
- Cath 11/28/24 with nonobstructive coronary disease
- Acute postop blood loss anemia - stable, no transfusion
- Acute postop atelectasis
- Acute postop hypovolemia with subsequent hypervolemia
Discussed patient care with: Nursing and Care Team
Subjective
-
Date of Service: December 22, 2024
Objective Data
-
Lab Results
12/22/24 03:32
PT 16.8 Sec (11.4-14.6) H 12/20/24 11:27
INR 1.34 12/20/24 11:27
APTT 25.5 Sec (23.4-35.0) 12/20/24 11:27
Vital Signs
Vital Signs
Temp Pulse Resp BP Pulse Ox
97.5 F 74 18 103/74 97
12/22/24 03:44 12/22/24 03:40 12/22/24 03:44 12/21/24 22:08 12/22/24 03:44
CT Intake/Output/Weight
12/21/24 12/21/24 12/22/24
06:59 18:59 06:59
Intake Total 324.8 / 583.8 293.6 / 293.6
Output Total 680 / 1510 600 / 1750 1150 / 1750
Balance -355.2 / -926.2 -306.4 / -1456.4 -1150 / -1456.4
SaO2: 97
Physical Exam
-
General: Awake and AOx3
Cardiovascular: Regular rate & rhythm and No Murmurs
Respiratory: Decreased Breath Sounds
Sternum: Stable
Incision: Clean, Dry and Intact
Extremities: Other (trace edema b/l)
Abdomen: soft, nontender, + bowel sounds
Data Reviewed
-
Lab Results: Results Reviewed
Medications: Active Meds Reviewed
Chest X-Ray: Report Reviewed and Image Reviewed
ECG: Report Reviewed and Image Reviewed
[2024-12-22 04:09] LABS: Blood Urea Nitrogen 16 mg/dl (9-20); Calcium 8.4 mg/dl (8.4-10.2); Carbon Dioxide 28 mmol/L (22-30); Chloride 100 mmol/L (98-107); Estimated Creatinine Clearance 105 ml/min; Glucose 125 mg/dl (70-99); Magnesium 2.1 mg/dl (1.6-2.3); Potassium 4.4 mmol/L (3.5-5.1); Sodium 132 mmol/L (135-145); eGFR > 60.00
[2024-12-22] MEDS: TYLENOL 1000 MG PO ×2 (05:03→13:55)
--- NOTE | 2024-12-22 07:27 | PTCARENOTE ---
assumed care of pt from previous shift RN, sinus rhythm on tele, VSS, + peripheral pulses, trace edema to bilateral lower extremities, epicardial V wire insulated. Lungs diminished, pox 94-95% on RA, coughing and deep breathing encouraged. +bs,
tolerating PO intake, voids spontaneously. Right IJ cordis w KVO infusing, PIV flushes easily. Post op sites stable. Plan of care reviewed w the pt and questions encouraged.
[2024-12-22] MEDS: PROTONIX 40 MG PO (08:07)
[2024-12-22] MEDS: LASIX 40 MG IV ×2 (08:08→16:13)
[2024-12-22] MEDS: LIDOCAINE 4% PATCH 1 PATCH TOPICAL (08:08)
[2024-12-22] MEDS: SENOKOT-S 1 TABLET PO ×2 (08:08→20:31)
[2024-12-22] MEDS: NEURONTIN 100 MG PO ×2 (08:08→16:13)
[2024-12-22] MEDS: LOPRESSOR 12.5 MG PO ×2 (08:08→11:15)
[2024-12-22] MEDS: MAGNESIUM OXIDE 500 MG PO ×2 (08:08→20:30)
[2024-12-22] MEDS: LOW STRENGTH ASPIRIN 81 MG PO (08:08)
[2024-12-22] MEDS: PACERONE 200 MG PO ×2 (08:08→16:13)
[2024-12-22] MEDS: BACTROBAN 2% OINTMENT 1 APPLIC NASAL ×2 (08:09→20:30)
[2024-12-22] MEDS: NOVOLOG FLEXPEN SC (08:21)
[2024-12-22] MEDS: NSS 500 IV (11:15)
--- NOTE | 2024-12-22 11:31 | PTCARENOTE ---
pt remains in sinus rhythm on tele, VSS, pt tolerating working w cardiac rehab.
--- NOTE | 2024-12-22 11:56 | W.PN.CARDCBS ---
Addendum entered and electronically signed by Luis Felipe Sosa MD 12/22/24 18:13:
I saw and examined the patient.
The Manager Flight Operations's note was reviewed and I agree with the note.
Comment: Briefly, 59-year-old man with past medical history of severe symptomatic mitral regurgitation who underwent mitral valve repair via right thoracotomy
He is doing well postoperatively, resting comfortably out of bed to chair at the time of my evaluation
Has been ambulating the halls without cardiovascular symptoms
Volume status appears reasonable on exam
Monitor for pericarditis - ST elevations noted on EKG and rub on exam however patient reports no symptoms
After discharge recommend cardiac rehab and office follow-up with primary dining server, Dr. Schultz
Original Note:
Today's Communication / Plan
-
continue post op care
follow HR/BP
Impression / Plan
-
Primary [place]: Dr. Schultz
Assessment:
Severe, symptomatic MR s/p Radical MV repair via R mini thoracotomy, PFO closure, IWONA clip 12/20/24
BPPV
STACY
BPH
KORIN 09/09/24: EF 65%, mildly dilated LA, moderate prolapse of posterior mitral leaflet present at P2/P3, eccentric jet of severe MR present, mild TR
Plan:
-s/p Radical MV repair via R mini thoracotomy, PFO closure, IWONA clip 12/20/24
-No further episodes of bradycardia noted overnight on Lopressor and amiodarone. Beta-anahy increased this morning, and now with some mild hypotension. Will follow and may need to decrease back to prior dosing. Hopefully for removal of temp
wire today
-Hemoglobin stable at 11. Continue aspirin
-continue post op care, OOB/IS as able
-d/w nursing, CT TAR HEATER
Progress Note - [place]
Subjective
Date of Service: December 22, 2024
Reports some mild lightheadedness at times. Decreased appetite today. Pain improved today
Objective
Labs:
12/22/24 03:32
12/22/24 03:32
Labs
Hgb 11.0 g/dL (13.0-18.0) L 12/22/24 03:32
Hct 31.9 % (39.0-52.0) L 12/22/24 03:32
Plt Count 148 10^3/uL (130-400) 12/22/24 03:32
PT 16.8 Sec (11.4-14.6) H 12/20/24 11:27
INR 1.34 12/20/24 11:27
APTT 25.5 Sec (23.4-35.0) 12/20/24 11:27
Sodium 132 mmol/L (135-145) L 12/22/24 03:32
Potassium 4.4 mmol/L (3.5-5.1) 12/22/24 03:32
BUN 16 mg/dl (9-20) 12/22/24 03:32
Creatinine 0.8 mg/dL (0.7-1.3) 12/22/24 03:32
Glucose 125 mg/dl (70-99) H 12/22/24 03:32
Vital Signs and I&O:
Vital Signs
Temp Pulse Resp BP Pulse Ox
98.5 F 75 16 96/64 92
12/22/24 11:18 12/22/24 11:15 12/22/24 11:18 12/22/24 11:14 12/22/24 11:18
Vital Signs
Temp Pulse Resp BP Pulse Ox
98.5 F 75 16 96/64 92
12/22/24 11:18 12/22/24 11:15 12/22/24 11:18 12/22/24 11:14 12/22/24 11:18
Intake & Output
12/20/24 12/21/24 12/22/24 12/23/24
07:59 07:59 07:59 07:59
Intake Total 583.8 / 583.8 392.5 / 392.5 110 / 110
Output Total 1510 / 1510 1700 / 1700 1400 / 1400
Balance -926.2 / -926.2 -1307.5 / -1307.5 -1290 / -1290
Physical Exam
Physical Exam
GEN: No distress, awake, alert, oriented x3. sitting in chair
HEENT: supple, anicteric, mmm, eomi
LUNGS: CTA B/L, no wheezes
CV: Reg, S1/S2, no murmur
EXT: No cyanosis, clubbing. trace edema of B/L LE
NEURO: Gross non-focal
SKIN: Warm, pink, dry. No rash. R chest incision c/d/i. temp wire in place
--- NOTE | 2024-12-22 14:07 | CM ---
CM following for DC planning needs.
Pt. POD#[address] Surgery[address]
DC plan reviewed; anticipated DC plan is for home w/ CT Transitional Care RN.
Will follow.
[2024-12-22] MEDS: ALBUMIN 5% 250 IV ×2 (20:30→22:40)
--- NOTE | 2024-12-22 21:00 | PTCARENOTE ---
Patient received OOB in chair. Patient initially wanted to go for his fourth walk before bed. Heart rate 100's. Blood pressure 83/62 (68). Patient with no c/o lightheadedness or dizziness. Patient assisted to bed without difficulty. Patient
stated he was experiencing a migraine headache all day. Physician's Wireless Cellular Technician for CT Surgery, Gale Lozada PA-C, made aware. 5% Albumin 12.5 grams 250 ml ordered and infusing without difficulty. O2 at 2L placed. SpO2 95%. No c/o SOB. Sinus
Tachycardia. No c/o chest pain, pressure or discomfort. Normoactive bowel sounds. Voiding. Right lateral chest with incision - Intact - Surgical adhesive. Dressing to right lateral chest intact. Right anterior chest with dressing intact.
V-Wire insulated. Positive, palpable pulses. Right I.J. Cordis. Assessment as documented.
[2024-12-22] MEDS: ZOFRAN 4 MG IV (22:36)
[2024-12-22] MEDS: NEURONTIN PO (22:59)
[2024-12-22] MEDS: PACERONE PO (23:00)
[2024-12-22] MEDS: TYLENOL PO (23:00)
[2024-12-22 23:25] LABS: Hematocrit 31.3 % (39.0-52.0); Hemoglobin 10.5 g/dL (13.0-18.0); Platelet Count 142 10^3/uL (130-400)
--- NOTE | 2024-12-22 23:30 | PTCARENOTE ---
Patient resting in bed. Patient with c/o nausea. No vomiting. Zofran 4mg IV administered without difficulty. Moderate relief provided. Blood pressure 87/66 (75). Second 5% Albumin 12.5 grams 250 ml infusing without difficulty. Lab work and
EKG obtained. No further changes from previous assessment.
[2024-12-22 23:45] LABS: Blood Urea Nitrogen 33 mg/dl (9-20); Calcium 8.3 mg/dl (8.4-10.2); Carbon Dioxide 30 mmol/L (22-30); Chloride 94 mmol/L (98-107); Estimated Creatinine Clearance 70 ml/min; Glucose 196 mg/dl (70-99); Potassium 4.8 mmol/L (3.5-5.1); Sodium 130 mmol/L (135-145); eGFR > 60.00
[2024-12-22 23:49] LABS: Magnesium 2.2 mg/dl (1.6-2.3)
[2024-12-23] VITALS (19 sets, daily range): BP systolic 88–145; BP diastolic 62–94; PULSE 78; O2SAT 92–96; BMI 27.5
[2024-12-23] MEDS: ALBUMIN 5% 250 IV (00:05)
[2024-12-23] MEDS: COMPAZINE 10 MG IV (00:30)
--- NOTE | 2024-12-23 01:00 | PTCARENOTE ---
Patient with c/o nausea. Compazine 10 mg IV ordered and administered without difficulty. Blood pressure 92/62 (72). Third 5% Albumin 12.5 grams 250 ml IV ordered and infusing without difficulty. Patient now sleeping. Assessment/Interventions as
documented.
[2024-12-23 05:26] LABS: Hematocrit 30.1 % (39.0-52.0); Hemoglobin 10.2 g/dL (13.0-18.0); Mean Corp Hgb Conc. 33.9 g/dL (33.0-37.0); Mean Corpuscular Hgb 31.5 pg (27.0-31.0); Mean Corpuscular Volume 92.9 fL (80.0-94.0); Mean Platelet Volume 10.3 fL (7.4-10.4); Platelet Count 144 10^3/uL (130-400); Red Blood Cell Count 3.24 10^6/uL (4.70-6.10); White Blood Cell Count 15.7 10^3/uL (4.8-10.8)
[2024-12-23 05:37] LABS: Blood Urea Nitrogen 35 mg/dl (9-20); Calcium 8.4 mg/dl (8.4-10.2); Carbon Dioxide 32 mmol/L (22-30); Chloride 96 mmol/L (98-107); Estimated Creatinine Clearance 76 ml/min; Glucose 177 mg/dl (70-99); Magnesium 2.4 mg/dl (1.6-2.3); Potassium 4.6 mmol/L (3.5-5.1); Sodium 132 mmol/L (135-145); eGFR > 60.00
[2024-12-23] MEDS: TYLENOL PO ×2 (06:00→23:30)
--- NOTE | 2024-12-23 06:00 | PTCARENOTE ---
Patient sleeping without difficulty. No further c/o nausea. No vomiting. AM labs collected and sent. Assessment/Interventions as documented.
--- NOTE | 2024-12-23 07:04 | W.PN.CT ---
Today's Communication / Plan
-
-pod #3
-nausea with diaphoresis, hypotension and tachycardia last night- possibly overdiuresed. BP improved with Albumin x3. Gave Zofran and Compazine for nausea
-Cr was up yesterday from 0.8 to 1.2 and improved to 1.1 today- follow
-abnormal ECG with ST elevations - no CP, suspect pericarditis,+rub postop
-Hg stable
-encourage IS, OOB
Assessment / Plan
-
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
appendage exclusion [35 mm clip] on 12/20/[address] Jean Baptiste, pod #3
- Intraop KORIN: LVEF 60% preop and 60-65% postop with no new regional wma. His left atrial appendage was verified to be free of any thrombus or debris preoperatively and clipped with a 35 mm V clip flush to the base. After coming off cardiopulmonary
bypass there is no systolic anterior motion the leaflets, no residual mitral valve insufficiency, mean gradient of 1 across the mitral valve repair. His PFO was found to be closed on transesophageal echocardiography and there was no residual flow in
his left atrial appendage. He had only trace to mild TR at best with no significant dilation of his atrium or his annulus and so this was left.
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
- Obstructive sleep apnea
- BPH
- Atrial septal defect
- Cath 11/28/24 with nonobstructive coronary disease
- Migraines with nausea
- Acute postop blood loss anemia - stable, no transfusion
- Acute postop atelectasis
- Acute postop hypovolemia with subsequent hypervolemia
- Suspected acute postop pericarditis/+ rub
Discussed patient care with: Nursing and Care Team
Subjective
-
Date of Service: December 23, 2024
Objective Data
-
Lab Results
12/23/24 04:56
12/23/24 04:56
PT 16.8 Sec (11.4-14.6) H 12/20/24 11:27
INR 1.34 12/20/24 11:27
APTT 25.5 Sec (23.4-35.0) 12/20/24 11:27
Vital Signs
Vital Signs
Temp Pulse Resp BP Pulse Ox
97.8 F 105 16 114/83 96
12/23/24 04:00 12/23/24 06:00 12/23/24 04:00 12/23/24 06:00 12/23/24 06:00
CT Intake/Output/Weight
12/22/24 12/23/24 12/23/24
18:59 06:59 18:59
Intake Total 240 / 1590 1350 / 1590
Output Total 2200 / 2500 300 / 2500
Balance -1960 / -910 1050 / -910
SaO2: 96
Physical Exam
-
General: Awake and AOx3
Cardiovascular: Regular rate & rhythm, No Murmurs and Rub
Respiratory: Decreased Breath Sounds
Sternum: Stable
Incision: Clean, Dry and Intact
Extremities: No Edema
Abdomen: soft, nontender, nondistended, + bowel sounds
Data Reviewed
-
Lab Results: Results Reviewed
Medications: Active Meds Reviewed
Chest X-Ray: Report Reviewed and Image Reviewed
ECG: Report Reviewed and Image Reviewed
[2024-12-23] MEDS: ZOFRAN 4 MG IV (08:43)
[2024-12-23] MEDS: PROTONIX 40 MG PO (08:43)
[2024-12-23] MEDS: NEURONTIN 100 MG PO ×3 (08:46→23:30)
[2024-12-23] MEDS: LASIX 40 MG IV (08:46)
[2024-12-23] MEDS: PACERONE 200 MG PO ×3 (08:47→23:30)
[2024-12-23] MEDS: DIAMOX 250 MG PO (08:47)
[2024-12-23] MEDS: MAGNESIUM OXIDE 500 MG PO ×2 (08:47→20:25)
[2024-12-23] MEDS: COLCHICINE 0.3 MG PO (08:47)
[2024-12-23] MEDS: TOPROL XL 50 MG PO (08:47)
[2024-12-23] MEDS: LIDOCAINE 4% PATCH 1 PATCH TOPICAL (08:48)
[2024-12-23] MEDS: SENOKOT-S 1 TABLET PO ×2 (08:48→20:25)
[2024-12-23] MEDS: LOW STRENGTH ASPIRIN 81 MG PO (08:48)
[2024-12-23] MEDS: BACTROBAN 2% OINTMENT 1 APPLIC NASAL ×2 (08:48→20:25)
--- NOTE | 2024-12-23 10:54 | W.PN.CARDCBS ---
Addendum entered and electronically signed by Ganga Winters MD 12/23/24 18:12:
Patient now postop day 3 status post radical mitral valve repair with left atrial appendage clip and PFO closure. He offers no complaints, feels comfortable still with the ventricular wire that is capped.
Meds, labs, reviewed
physical findings, assessments of and be reviewed and agreed upon
No obvious friction rub at the moment, breath sounds diminished on right, no edema
Impression:
Postop day 3 status post mitral valve repair with PFO closure and left atrial appendage clip
Pericarditis
Plan:
Continue supportive care,
Anticipate discharge in 24 to 48 hours
Original Note:
Today's Communication / Plan
-
post op care
follow BP/HR
Impression / Plan
-
Primary Profiler Hand: Dr. Schultz
Assessment:
Severe, symptomatic MR s/p Radical MV repair via R mini thoracotomy, PFO closure, IWONA clip 12/20/24
Post op pericarditis
BPPV
STACY
BPH
KORIN 09/09/24: EF 65%, mildly dilated LA, moderate prolapse of posterior mitral leaflet present at P2/P3, eccentric jet of severe MR present, mild TR
Plan:
-s/p Radical MV repair via R mini thoracotomy, PFO closure, IWONA clip 12/20/24
-had some hypotension/tachycardia/nausea overnight. there was concern for overdiuresis and received albumin with improvement.
-EKG 12/[address]ations most consistent with pericarditis. colchicine initiated
-BP/HR stable. no further bradycardia noted on tele. continue toprol/amiodarone
-follow up echo study 12/23 pending
-hgb stable at 10.2. Continue aspirin
-continue post op care, OOB/IS as able
-DC planning
-d/w nursing, CT RETIREMENT CONSULTANT
Progress Note - Profiler Hand
Subjective
Date of Service: December 23, 2024
no issues at present
Objective
Labs:
12/23/24 04:56
12/23/24 04:56
Labs
Hgb 10.2 g/dL (13.0-18.0) L 12/23/24 04:56
Hct 30.1 % (39.0-52.0) L 12/23/24 04:56
Plt Count 144 10^3/uL (130-400) 12/23/24 04:56
PT 16.8 Sec (11.4-14.6) H 12/20/24 11:27
INR 1.34 12/20/24 11:27
APTT 25.5 Sec (23.4-35.0) 12/20/24 11:27
Sodium 132 mmol/L (135-145) L 12/23/24 04:56
Potassium 4.6 mmol/L (3.5-5.1) 12/23/24 04:56
BUN 35 mg/dl (9-20) H 12/23/24 04:56
Creatinine 1.1 mg/dL (0.7-1.3) 12/23/24 04:56
Glucose 177 mg/dl (70-99) H 12/23/24 04:56
Vital Signs and I&O:
Vital Signs
Temp Pulse Resp BP Pulse Ox
98.2 F 78 16 132/93 92
12/23/24 08:31 12/23/24 10:00 12/23/24 08:31 12/23/24 08:31 12/23/24 10:25
Vital Signs
Temp Pulse Resp BP Pulse Ox
98.2 F 78 16 132/93 92
12/23/24 08:31 12/23/24 10:00 12/23/24 08:31 12/23/24 08:31 12/23/24 10:25
Intake & Output
12/21/24 12/22/24 12/23/24 12/24/24
07:59 07:59 07:59 07:59
Intake Total 583.8 / 583.8 392.5 / 392.5 1480 / 1590 110 / 110
Output Total 1510 / 1510 1700 / 1700 2500 / 2500
Balance -926.2 / -926.2 -1307.5 / -1307.5 -1020 / -910 110 / 110
Physical Exam
Physical Exam
GEN: No distress, awake, alert, oriented x3.
HEENT: supple, anicteric, mmm, eomi
LUNGS: CTA B/L, no wheezes, + rub
CV: Reg, S1/S2, no murmur
EXT: No cyanosis, clubbing. trace edema of B/L LE
NEURO: Gross non-focal
SKIN: Warm, pink, dry. No rash. R chest incision c/d/i.
[2024-12-23] MEDS: NSS IV (11:16)
--- NOTE | 2024-12-23 11:33 | CM ---
CM following for DC planning needs.
Met w/ patient at bedside. Patient reports that he is feeling well. We reviewed DC plan for home w/ CT Transitional Care RN. We reviewed post op MD appointments and Cardiac Rehab. No add'l needs identified.
Will remain avail.
--- NOTE | 2024-12-23 15:39 | PN.CDI ---
Addendum entered and electronically signed by Alberto Lanza PA-C 12/23/24 15:50:
Pt with hyponatremia s/p mitral valve repair
Original Note:
CDI
- -
CDI:
Physician Documentation Request
Admit Date: 12/20/24 04:[address] Team,
Please review the following and provide your response in the progress notes.
Clinical Indicators:
Pt admitted for MV repair, PFO closure and left apical appendage clip.
Laboratory Tests
12/22/24 12/22/24 12/23/24
03:32 23:16 04:56
Sodium 132 L 130 L 132 L
Based on the above, could you clarify in the progress notes, the appropriate diagnosis, if significant, that supports the above Lab abnormalities and additional evaluation, monitoring and/or treatment rendered:
Hyponatremia
Insignificant abnormal lab values
Other
Use of terms such as suspected, likely, concern for, or probable (associated with a specific diagnosis that is being evaluated, monitored, or treated as if it exists) are acceptable and can be coded in the inpatient setting, when documented at the
time of discharge.
Thank you,
Brook Ocampo RN, BSN
CDI Specialist
[place] [facility]
Please use your independent medical judgment in providing your response.
[2024-12-23] MEDS: TYLENOL 1000 MG PO (16:20)
--- NOTE | 2024-12-23 17:01 | PTCARENOTE ---
Cordis removed, VSS, sinus rhythm maintained.
--- NOTE | 2024-12-23 20:00 | PTCARENOTE ---
Assumed care of patient at 1900. Patient found resting in bed at time of assessment. Patien tis AOx4, follows commands appropriately, moves all extremities. Lung sounds are clear and equal bilaterally saO2 93% on RA. Heart sounds have a regular rate
and rhythm. Patient is SR on the monitoring analyst. Normal palpable pulses and no observable edema. V wires are present but insulated. Patient has active BS, reports flatus no BM post op yet. Patient is voiding clear yellow in bathroom. Patient has R
lateral chest incision approx with surg adhesive BARON and R groin puncture approx with surg adhesive MARKETING CONTENT COORDINATOR. There is a R AC 18G PIV available for intermittent infusion. VSS. Given prn tylenol and flexeril for pain. No other complaints at this time.
[2024-12-23] MEDS: TYLENOL 650 MG PO (20:25)
[2024-12-23] MEDS: FLEXERIL 5 MG PO (20:42)
--- NOTE | 2024-12-24 | PTCARENOTE ---
Patient reassessed. VSS. Remains SR on the monitor. Call monique within reach.
--- NOTE | 2024-12-24 03:52 | W.PN.CT ---
Today's Communication / Plan
-
Plan:
-No major issues overnight. Hemodynamically and neurologically intact
-Weight has been up and receiving diuresis. Check wt today
-Cont. diuresis
-F/U 2-view cxr
-Repeat echo yesterday 12/23 showed a well seated MV repair with PG/MG of 4/, no MR, EF 55-60%
-Cont. current meds (ASA, Amiodarone, Toprol XL, Colchicine)
-Encourage use of IS
-OOB into chair/Ambulate
-D/C home today
Assessment / Plan
-
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
appendage exclusion [35 mm clip] on 12/20/[address] Jean Baptiste, pod #4
- Intraop KORIN: LVEF 60% preop and 60-65% postop with no new regional wma. His left atrial appendage was verified to be free of any thrombus or debris preoperatively and clipped with a 35 mm V clip flush to the base. After coming off cardiopulmonary
bypass there is no systolic anterior motion the leaflets, no residual mitral valve insufficiency, mean gradient of 1 across the mitral valve repair. His PFO was found to be closed on transesophageal echocardiography and there was no residual flow in
his left atrial appendage. He had only trace to mild TR at best with no significant dilation of his atrium or his annulus and so this was left.
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
- Obstructive sleep apnea
- BPH
- Atrial septal defect
- Cath 11/28/24 with nonobstructive coronary disease
- Migraines with nausea
- Acute postop blood loss anemia - stable, no transfusion
- Acute postop atelectasis
- Acute postop hypovolemia with subsequent hypervolemia
- Suspected acute postop pericarditis/+ rub
- Acute postop hyponatremia
Discussed patient care with: Cardiology, Nursing, Respiratory Therapy, Pharmacy and Care Team
Subjective
-
Date of Service: December 24, 2024
Pt c/o mild incisional pain, otherwise feels well. Ambulating halls without difficulty
Objective Data
-
PT 16.8 Sec (11.4-14.6) H 12/20/24 11:27
INR 1.34 12/20/24 11:27
APTT 25.5 Sec (23.4-35.0) 12/20/24 11:27
Vital Signs
Vital Signs
Temp Pulse Resp BP Pulse Ox
98.2 F 69 16 125/87 96
12/23/24 23:46 12/23/24 23:32 12/23/24 23:46 12/23/24 23:32 12/23/24 23:46
CT Intake/Output/Weight
12/23/24 12/23/24 12/24/24
06:59 18:59 06:59
Intake Total 1350 / 1590 110 / 110
Output Total 300 / 2500 1400 / 1400
Balance 1050 / -910 -1290 / -1290
SaO2: 96 (RA)
Physical Exam
-
General: Awake, Oriented and AOx3
Cardiovascular: Regular rate & rhythm, No Murmurs, No Rub and No Gallop
Respiratory: Decreased Breath Sounds (at bases, otherwise clear)
Sternum: Stable
Incision: Clean, Dry, Intact and Dressing Intact
Extremities: Other (+trace edema)
Data Reviewed
-
Lab Results: Results Reviewed
Medications: Active Meds Reviewed
Chest X-Ray: Report Reviewed and Image Reviewed
ECG: Report Reviewed and Image Reviewed
[2024-12-24 04:19] VITALS: BP 109/72
[2024-12-24 04:28] VITALS: BMI 27.0
[2024-12-24 04:29] LABS: Hematocrit 28.9 % (39.0-52.0); Hemoglobin 10.3 g/dL (13.0-18.0); Mean Corp Hgb Conc. 35.6 g/dL (33.0-37.0); Mean Corpuscular Hgb 32.5 pg (27.0-31.0); Mean Corpuscular Volume 91.2 fL (80.0-94.0); Mean Platelet Volume 10.2 fL (7.4-10.4); Platelet Count 165 10^3/uL (130-400); Red Blood Cell Count 3.17 10^6/uL (4.70-6.10); Red Cell Dist. Width 12.5 % (11.5-14.5); White Blood Cell Count 12.7 10^3/uL (4.8-10.8)
[2024-12-24] MEDS: TYLENOL 1000 MG PO (04:29)
[2024-12-24 04:54] LABS: Blood Urea Nitrogen 28 mg/dl (9-20); Glucose 109 mg/dl (70-99)
[2024-12-24 04:55] LABS: Calcium 8.4 mg/dl (8.4-10.2); Carbon Dioxide 25 mmol/L (22-30); Chloride 100 mmol/L (98-107); Estimated Creatinine Clearance 76 ml/min; Magnesium 2.4 mg/dl (1.6-2.3); Potassium 3.8 mmol/L (3.5-5.1); Sodium 133 mmol/L (135-145); eGFR > 60.00
--- NOTE | 2024-12-24 05:57 | PTCARENOTE ---
Patient reassessed. VSS. Remains SR on the monitor. Patient ambulatory requesting to clean later independently in shower for hygiene care. AM labs obtained. Call monique within reach.
[2024-12-24] MEDS: LASIX 40 MG IV (06:33)
[2024-12-24] MEDS: KCL 40 MEQ PO (06:33)
[2024-12-24 06:35] VITALS: BP 108/77
[2024-12-24 08:00] VITALS: BP 111/66
[2024-12-24] MEDS: PROTONIX 40 MG PO (08:01)
[2024-12-24] MEDS: LOW STRENGTH ASPIRIN 81 MG PO (08:01)
[2024-12-24] MEDS: TOPROL XL 50 MG PO (08:01)
[2024-12-24] MEDS: BACTROBAN 2% OINTMENT 1 APPLIC NASAL (08:01)
[2024-12-24] MEDS: PACERONE 200 MG PO (08:01)
[2024-12-24] MEDS: SENOKOT-S 1 TABLET PO (08:02)
[2024-12-24] MEDS: LIDOCAINE 4% PATCH TOPICAL (08:02)
[2024-12-24] MEDS: MAGNESIUM OXIDE PO (08:02)
[2024-12-24] MEDS: NEURONTIN 100 MG PO (08:02)
[2024-12-24] MEDS: COLCHICINE 0.3 MG PO (08:02)
--- NOTE | 2024-12-24 08:55 | PTCARENOTE ---
Received pt from shift commander RN; pt AAOx3; NSR on monitor and VSS; PIV x1 patent; positive bowel sounds; pt voiding clear yellow urine; palpable pulses throughout; no edema noted; all surgical sites C/D/I; see nursing documentation for further
details.
--- NOTE | 2024-12-24 09:45 | W.DCSUMMARY ---
Discharge Summary
Discharge Data
Date of Admission: 12/20/24
Date of Discharge: 12/24/24
-
Pending Results: No
Hospital Course
Primary care physician:
Rafaela Rosa
Outpatient correctional supervisor:
Sohan Chester
Inpatient consultants:
DCA, protective services case worker
Procedures:
1. Radical mitral valve repair (triangular resection of the medial segment of P2 and imbrication of P2 onto P3, free edge remodeling, single [place] cord to the posterior medial papillary muscle head to P2 and P3, 34 mm band annuloplasty)
Primary Diagnosis:
1. 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
Secondary Diagnoses:
1. Obstructive sleep apnea
2. Acute postop hypovolemia with subsequent hypervolemia
3. BPH
4. Atrial septal defect
5. Severe mitral valve insufficiency, symptomatic
HPI: 59-year-old male who has known mitral valve insufficiency. His mitral valve regurgitation was severe and he was developing some symptoms in the form of shortness of breath and some dizziness during exertion. Overall he is in excellent
clinical health at baseline. Given his age, mitral valve pathology, and severity of mitral valve insufficiency he met indication for surgical intervention in the form of mitral valve repair. He presented electively on 12/20 for a MV repair with
Ita.
Hospital course: Patient presented to the hospital on 12/20 for an elective mitral valve repair by Dr. Jean Baptiste. Postoperatively he returned to the CVICU extubated for the remainder of his recovery. His amiodarone was held for the day due to
bradycardia. On 12/21 postoperative day 1 patient remained in sinus rhythm so beta-blockers and amiodarone was resumed. Chest tubes and Fernandez was removed. On 10/21 postoperative day 2 patient was transitioned off his insulin drip and made
telemetry. He was diuresed with 40 mg of IV Lasix twice daily and beta-blockers were increased. On 12/23 postoperative day 3 patient was hypotensive overnight and received 750 mL of albumin. He however in the morning his blood pressure improved
and his beta-anahy was changed to Toprol which had better blood pressure management. He was again diuresed with 40 mg of IV Lasix and Diamox for an elevated bicarb. On 12/24 postoperative day 4 patient was deemed stable for discharge and
epicardial wires were cut at the skin. He was given 1 dose of Lasix and instructed to weigh himself at home daily. He he had a transthoracic echocardiogram yesterday which showed a trace pericardial effusion so in 1 week he should will receive a
repeat echo with a repeat CBC/BMP.
Home medication changes:
see below
Discharge Plan
-
Patient Disposition: Home (Routine Discharge)
Discharge Diagnosis/Procedures: Right mini thoracotomy; Radical mitral valve repair (34 mm Lacy physio flex annuloplasty band); Atrial septal defect closure [PFO closure]; Left atrial appendage exclusion [35 mm clip]
Condition: Good
Diet: Low Cholesterol and 2 Gram Sodium
Activity: No strenuous activity
Driving Restrictions: Not until seen by your Dr
Bathing Restrictions: OK to Shower
Blood Work: CBC/BMP/ transthoracic echocardiogram in one week
Other Services: Cardiac Rehab
Specialty Instructions: Weigh Daily- Call MD for wt gain/loss 3 lbs overnight/5 lbs in 1 week
Activity Restrictions/Additional Instructions:
ACTIVITY:
-No strenuous activity: no heavy lifting, pushing, pulling anything over 15 pounds for one month
-continue to use stairs as tolerated
DRIVING RESTRICTIONS:
-No driving for one month or until approved by your surgeon
WOUND CARE:
-Shower daily. Use soap & water.
-No lotions, creams or powders on incision area.
DIET:
-continue a low fat/low cholesterol diet.
-IF you are diabetic, continue carb controlled diet.
CARDIAC REHAB:
-Please make appointment to start in 5-6 weeks with your local hospital program. (See Cardiac Rehabilitation Discharge Booklet).
SPECIALTY INSTRUCTIONS:
-Weigh yourself daily. Call your physician for any weight gain/loss of 3 lbs overnight or 5 lbs in one week.
-REPORT any clicking noise or uneven appearance of your sternum to your surgeon immediately.
-If you smoke, you are instructed to quit. The [place] smoking hotline phone number is [phone]
Referrals:
CT Transitional Care Nurse [Outside] (The Cardiothoracic Transitional Care Nurse will call you to set up a visit in 1-2 days.)
[facility]. Cardiac Rehab [Outside] - 01/24/25 11:00 am
(Cardiac Rehab Orientation appointment is on Thursday01/24/25 at 11AM
The Cardiac Rehab gym is located on the first floor of the [facility].)
Rafaela Rosa CRNP [Family Provider] -
Odalis Mccall CRNP [Specified Professional Personl] - 02/02/25 2:40 pm
[place] Jean Baptiste MD [Active] - 01/19/25 9:00 am
Additional Discharge Medication Instructions: Only take colchicine for 30 days after surgery
Prescriptions:
New
cyclobenzaprine 10 mg Tablet
5 mg PO Q8HPRN PRN (Reason: muscle spasm) Qty: 30 0RF
acetaminophen 325 mg Tablet
650 mg PO Q6HPRN PRN (Reason: mild pain,headache,temp >101F ) Qty: 0 0RF
metoprolol succinate 50 mg Tablet Extended Release 24 Hr
50 mg PO DAILY Qty: 60 1RF
aspirin 81 mg Tablet,Chewable
81 mg PO DAILY Qty: 0 0RF
gabapentin 100 mg Capsule
100 mg PO TID Qty: 60 0RF
colchicine 0.6 mg Tablet
0.3 mg PO DAILY Qty: 30 0RF
oxycodone 5 mg Tablet
2.5 mg PO Q6HPRN PRN (Reason: severe pain) Qty: 10 0RF
Discharge Orders:
Discharge Patient (As Directed); Ordered 12/24/24
Ordered By: Farzaneh Beth
Care Plan Goals
Care Plan Goals:
Problem: Readiness for enhanced knowledge related to diagnosis and treatment plan
Goal: Understand your diagnosis and treatment plan needs, including medications if applicable.
Instructions: Know your diagnosis, underlying causes and treatment plan options, including medications if applicable. Consult with your health care team to learn about your diagnosis and treatment plan, including medications if applicable.
Discharge Date and Time
Print Language: LAO
[2024-12-24 09:59] VITALS: BP 125/98
[2024-12-24 10:12] VITALS: BP 96/66
[2024-12-24 10:14] VITALS: BP 125/89; BP 99/66; PULSE 67; O2SAT 95; O2SAT 97
--- NOTE | 2024-12-24 11:04 | PTCARENOTE ---
nurse monitoring removed and pt showered self with CHG; at bedside for discharge instructions.
[2024-12-24] MEDS: FLEXERIL 5 MG PO (11:38)
--- NOTE | 2024-12-24 12:34 | PTCARENOTE ---
PIV x1 removed and discharge paperwork gone over with pt and ; pt transported to car via wheelchair for discharge.
== END 2024-12-24 11:40 | disposition home or self-care (01) | DRG 219 ==
LOC: CVICU 04:56
PROVIDERS: Nurse Practitioner; Physician Assistant Medical; ADMITTING PHYSICIAN Thoracic Surgery (Cardiothoracic Vascular Surgery); CONSULT PHYSICIAN Internal Medicine Critical Care Medicine; FAMILY PHYSICIAN Nurse Practitioner Family; OTHER PHYSICIAN Internal Medicine Interventional Cardiology
PROC: 02L70CK Occlusion of Left Atrial Appendage with Extraluminal Device, Open Approach (ICD-10-PCS; 2024-12-20)
PROC: 02Q50ZZ Repair Atrial Septum, Open Approach (ICD-10-PCS; 2024-12-20)
PROC: 02UG0JZ Supplement Mitral Valve with Synthetic Substitute, Open Approach (ICD-10-PCS; 2024-12-20)
PROC: 5A1221Z Performance of Cardiac Output, Continuous (ICD-10-PCS; 2024-12-20)
PROC: B24BZZ4 Ultrasonography of Heart with Aorta, Transesophageal (ICD-10-PCS; 2024-12-20)
DX: I34.0 Nonrheumatic mitral (valve) insufficiency (principal); I51.1 Rupture of chordae tendineae, not elsewhere classified; Q21.12 Patent foramen ovale; D62 Acute posthemorrhagic anemia; I31.39 Other pericardial effusion (noninflammatory); J98.11 Atelectasis; I30.8 Other forms of acute pericarditis; E87.1 Hypo-osmolality and hyponatremia; R73.9 Hyperglycemia, unspecified; E86.1 Hypovolemia; E87.70 Fluid overload, unspecified; R00.1 Bradycardia, unspecified; I95.9 Hypotension, unspecified; R11.0 Nausea; R00.0 Tachycardia, unspecified; G47.33 Obstructive sleep apnea (adult) (pediatric); N40.0 Benign prostatic hyperplasia without lower urinary tract symptoms; G43.909 Migraine, unspecified, not intractable, without status migrainosus; H81.10 Benign paroxysmal vertigo, unspecified ear
CPT/HCPCS: 88305; 93308; 36415; 71045; 71046; 80048; 80053; 81003; 81015; 82248; 82330; 82565; 82805; 82947; 82962; 83036; 83735; 84132; 84302; 84520; 85014; 85018; 85025; 85027; 85049; 85610; 85730; 86850; 86900; 86901; 86920; 87070; 93005; 93321; 93325; J2916; P9045

== ENCOUNTER → 2025-01-17 15:43 | Outpatient (REF) | payer OTHER, SELFPAY | LOC: HWRCS 15:43 | PROVIDERS: ATTENDING PHYSICIAN Thoracic Surgery (Cardiothoracic Vascular Surgery); FAMILY PHYSICIAN Nurse Practitioner Family | DX: I31.39 Other pericardial effusion (noninflammatory) (principal) | CPT/HCPCS: 93306 ==

== ENCOUNTER 2025-02-06 08:41 | Outpatient (RCR) | payer OTHER, SELFPAY | END 2025-02-06 23:59 | disposition home or self-care (01) | LOC: CRHB 08:41 | PROVIDERS: ATTENDING PHYSICIAN Internal Medicine Cardiovascular Disease; FAMILY PHYSICIAN Nurse Practitioner Family | DX: Z95.4 Presence of other heart-valve replacement (principal) | CPT/HCPCS: 36415; 80061; 93797; 93798 ==

== ENCOUNTER 2025-03-03 06:30 | Outpatient (RCR) | payer OTHER, SELFPAY ==
[2025-02-24 09:49] LABS: HDL Cholesterol 49 mg/dl; LDL Cholesterol, Calculated 141 mg/dl; Total Cholesterol 209 mg/dl (50-199); Triglyceride 95 mg/dl (10-149); Very Low Density Lipoprotein 19 mg/dl (0-30)
== END 2025-03-03 13:34 | disposition home or self-care (01) ==
LOC: CRHB 06:30
PROVIDERS: ATTENDING PHYSICIAN Internal Medicine Cardiovascular Disease; FAMILY PHYSICIAN Nurse Practitioner Family
DX: Z95.4 Presence of other heart-valve replacement (principal)
CPT/HCPCS: 80061; 93797; 93798; G0422; G0423

== ENCOUNTER → 2025-07-17 15:43 | Outpatient (REF) | payer OTHER, SELFPAY | LOC: HWRCS 15:43 | PROVIDERS: ATTENDING PHYSICIAN Thoracic Surgery (Cardiothoracic Vascular Surgery) | DX: Z98.890 Other specified postprocedural states (principal) | CPT/HCPCS: 93306 ==

== ENCOUNTER 2025-08-18 08:16 | Emergency (ER) | payer OTHER, SELFPAY ==
[2025-08-18 08:19] VITALS: BP 117/85
--- NOTE | 2025-08-18 08:32 | ED.GENMED ---
History of Present Illness
General
Chief Complaint: Chest Pain
Time Seen by Provider: 08/18/25 08:32
History of Present Illness
History of Present Illness:
FOCUSED PAST MEDICAL HISTORY
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
REVIEW OF OLD RECORDS
- I reviewed the operative notes from December 2024 and the patient had mitral valve repair
- Left heart cath November 28, 2024 showed nonobstructive coronary disease
Note:
CHIEF COMPLAINT(S)
- Chest pain with deep breathing
- Headache at the base of the skull
HISTORY OF PRESENT ILLNESS
The patient is a 59-year-old male with a history of recent mitral valve repair earlier this year and a cardiac catheterization in November which showed no significant coronary artery disease. He presents with a primary complaint of left-sided chest
pain localized in the anterior part of the chest, which has been present since Thursday. The patient describes that the pain worsens with deep breathing. He also reports having a headache at the base of his skull, noting that he experiences
headaches occasionally, and is not necessarily concerned about the headache as he frequently gets headaches. The patient works in maintenance and initially thought the pain could be muscle-related due to physical activity, as he is often moving and
lifting objects.
The chest pain does not worsen with palpation or when he leans forward. Furthermore, deep breathing exacerbates the discomfort, but physical maneuvers did not provoke significant pain. The patient�s oxygen levels and electrocardiogram (EKG) were
reported as within normal limits.
He denies ever having had blood clots, although he reports a family history of blood clots in his parents. He reports a slightly elevated temperature but did not recall precise details due to being occupied with parking. He denies coughing, fever,
leg swelling, and sudden weight gain.
PAST MEDICAL AND SURIGICAL HISTORY
- Mitral valve repair earlier this year
- Cardiac catheterization without significant findings in November
CHRONIC MEDICAL CONDITIONS SIGNIFICANTLY AFFECTING CARE
- History of mitral valve repair
EXTERNAL RECORDS REVIEWED
- Cardiac catheterization report from November showing no significant coronary artery disease
SOCIAL HISTORY
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
REVIEW OF SYSTEMS
- Cardiovascular: Pain in the left anterior chest with deep breathing, no history of blood clots
- Neurological: Headache at the base of the skull
- Constitutional: Slightly elevated temperature
- Respiratory: No cough or pulmonary symptoms reported
PHYSICAL EXAM
General: Alert, no acute distress.
Skin: Warm, dry.
Head: Normocephalic, atraumatic.
Neck: Supple, trachea midline.
Eye Ears, nose, mouth and throat: Oral mucosa moist.
Cardiovascular: Normal peripheral perfusion, No edema. No significant chest wall tenderness appears very comfortable
Respiratory: Respirations are non-labored.
Gastrointestinal : Abdomen nondistended
Back: Normal range of motion, Normal alignment.
Musculoskeletal: Normal ROM, normal strength.
Neurological: Alert and oriented to person, place, time, and situation, No focal neurological deficit observed.
Psychiatric: Cooperative, appropriate mood & affect.
PLAN
- Laboratory tests including a screening test for blood clots
- Thoracic imaging (X-ray)
- Administration of Ketorolac (Toradol) for pain management, noting potential relief for both chest pain and headache
DIFFERENTIAL DIAGNOSIS
The Differential Diagnosis includes, in no particular order and is not limited to:
- Musculoskeletal chest pain
- Pleuritic chest pain
- Pulmonary embolism
- Costochondritis
- Gastroesophageal reflux disease (GERD)
- Thoracic aortic dissection
- Pericarditis
- Pneumothorax
- Coronary artery disease (atypical presentation)
- Tension headache
RADIOLOGY
- Chest x-ray obtained and I see no acute abnormality
EKG
- Sinus 96, PACs, left axis deviation, inferior Q waves; on 12/22/2024, EKG was consistent with pericarditis with diffuse ST elevation
LABS
- White count 13, D-dimer 0.41, chemistries normal
UPDATE
-SUMMARY OF ENCOUNTER
The patient, a 59-year-old male with a history of recent mitral valve repair and a cardiac catheterization this year showing no significant findings, presented to the emergency department with left-sided chest pain exacerbated by deep breathing and
a headache at the base of the skull. The troponin test, the main cardiac blood test, was normal, ruling out myocardial infarction. A blood clot screening test showed no signs of clotting, and the chest x-ray showed no abnormalities such as pneumonia
or pneumothorax. The patients symptoms are likely musculoskeletal in origin, possibly related to chest wall pain or pleuritis. The pain improved with the administration of ketorolac. Given the patients recent normal cardiac catheterization and the
absence of acute findings, the decision was made to discharge him for outpatient management with follow-up care.
DISPOSITION
Discharge
ASSESSMENT
The chest pain and headache are likely musculoskeletal and possibly pleuritic in origin. There is no evidence of acute coronary syndrome, pulmonary embolism, or other life-threatening conditions.
EMERGENCY TREATMENTS ADMINISTERED
Ketorolac (for pain management)
PLAN
The patient should be discharged home with a recommendation to follow up with his business continuity specialist, Dr. Chester, for further management of his valvular heart condition. The possibility of musculoskeletal or pleuritic chest pain should be monitored, and
the patient should return if symptoms worsen or new symptoms develop.
INDEPENDENT REVIEW OF LABS AND INTERPRETATION OF TESTS
- My independent review of the troponin test shows normal levels, which does not indicate myocardial infarction.
- My independent review of the screening test for blood clots shows no signs of clotting.
- My independent interpretation of the chest x-ray shows no abnormalities, no signs of pneumonia or pneumothorax.
PATIENT EDUCATION AND COUNSELING
The patient was informed regarding the findings that suggest a musculoskeletal or pleuritic origin for the chest pain and reassured about the absence of serious cardiac or pulmonary issues. He was advised on the importance of follow-up with his
business continuity specialist to monitor his heart condition and instructed on when to return to the emergency department.
FOLLOW-UP INSTRUCTIONS
The patient should follow up with his main business continuity specialist, Dr. Chester.
MEDICATION RECONCILIATION
Ketorolac was administered for pain management.
MEDICAL DECISION MAKING
- Complexity of Data Reviewed: Chronic conditions affecting care [history of mitral valve repair] Differential Diagnosis: Musculoskeletal chest pain, Pleuritic chest pain, Pulmonary embolism, Costochondritis, Gastroesophageal reflux disease (GERD),
Thoracic aortic dissection, Pericarditis, Pneumothorax, Coronary artery disease (atypical presentation), Tension headache.
- Data:
Category 1: Non-emergency department records reviewed, including the cardiac catheterization report from November. External record reviewed shows no significant coronary artery disease.
- Risk: Consideration of Admission/Observation: Escalation of care, including admission/observation, was considered given the complexity and risk of the patients presenting complaint, exam findings, and underlying comorbidities. However, ultimately,
I feel the patient is safe for outpatient management with close follow-up. Reasoning: Work-up is reassuring, does not reveal any acute life/organ-threatening processes, patients symptoms well controlled upon reevaluation, reexamination is
reassuring, vitals are stable, patient agreeable with discharge, and reliable for follow-up.
DIAGNOSIS
- Musculoskeletal chest pain (ICD-10: M54.6)
- Headache, unspecified (ICD-10: R51)
Patient overall feels improved after Toradol given. Very low suspicion for acute coronary event given the pleuritic description of pain and recent relatively unremarkable coronary cath.
Past History
Past History
ED Past Medical History: None
Social History
Employment: Employed
Phy Exam
Physical Exam
Physical Exam:
See HPI
Scores
Heart Score for Chest Pain Patients
STEMI patient?: Not applicable
Course
Orders/Labs/Results
Orders:
Orders
08/18/25 08:16
EKG [Electrocardiogram (*1)] Urgent
Reason for Study: Chest Pain
EKG- Treatment ONCE
08/18/25 08:42
Ketorolac [Toradol] 15 mg IV NOW STA
08/18/25 08:43
CR Chest - 2 Views Urgent
Comment:
Reason For Exam: L pleuritic pain
08/18/25 09:00
Complete Blood Count/With Diff Urgent
Comprehensive Metabolic Panel Urgent
D-Dimer Urgent
Magnesium Urgent
Troponin I Urgent
Abnormal Lab Results
08/18/25
09:00
WBC 13.0 H 10^3/uL
(4.8-10.8)
RBC 4.61 L 10^6/uL
(4.70-6.10)
Absolute Neuts (auto) 9.6 H 10^3/uL
(1.4-6.5)
Absolute Monos (auto) 1.4 H 10^3/uL
(0.1-0.6)
Lymphocytes % 15.3 L %
(20.5-51.1)
Monocytes % 10.4 H %
(1.7-9.3)
Glucose 104 H mg/dl
(70-99)
08/18/25 09:00
08/18/25 09:00
Vital Signs
Initial and Last Documented VS:
Initial Vital Signs
Temp Pulse Resp BP Pulse Ox
37.3 C 96 18 117/85 98
08/18/25 08:19 08/18/25 08:19 08/18/25 08:19 08/18/25 08:19 08/18/25 08:19
Last Documented Vital Signs
Temp Pulse Resp BP Pulse Ox
37.3 C 96 18 117/85 98
08/18/25 08:19 08/18/25 08:19 08/18/25 08:19 08/18/25 08:19 08/18/25 08:35
*Pulse Oximetry
SaO2: 98
Oxygen Mode of Delivery: Room air
Patient hypoxic: no
*Critical Care Note
Total Time (30-74mins, 75-104mins- exclusive of procedures): Not Applicable
ED Attending Note
-
Portions of this chart may have been created with voice recognition software.� Occasional wrong word or��sound alike� substitutions may have occurred due to the inherent limitations of voice recognition software.
Discharge Plan
Departure
Patient Disposition: Home (Routine Discharge)
Date of Disposition: 08/18/25
Time of Disposition: 09:47
Patient with high blood pressure during this ER visit?: Yes
Discharge Problem:
Chest pain
Instructions: Chest Pain DCA Follow Up, BLOOD PRESSURE
Prescriptions:
No Action
cyclobenzaprine 10 mg Tablet
5 mg PO Q8HPRN PRN (Reason: muscle spasm) Qty: 30 0RF
acetaminophen 325 mg Tablet
650 mg PO Q6HPRN PRN (Reason: mild pain,headache,temp >101F ) Qty: 0 0RF
metoprolol succinate 50 mg Tablet Extended Release 24 Hr
50 mg PO DAILY Qty: 60 1RF
aspirin 81 mg Tablet,Chewable
81 mg PO DAILY Qty: 0 0RF
gabapentin 100 mg Capsule
100 mg PO TID Qty: 60 0RF
colchicine 0.6 mg Tablet
0.3 mg PO DAILY Qty: 30 0RF
oxycodone 5 mg Tablet
2.5 mg PO Q6HPRN PRN (Reason: severe pain) Qty: 10 0RF
Referrals:
Ashlie Gillette PA-C [Family Provider, Family Practice]
Activity Restrictions/Additional Instructions:
Follow-up with Dr. Schultz. Return here if worse or other concerns. Consider short course of ipum-[id number]-[id number] ibuprofen (NSAID). We gave you an NSAID today called Toradol.
Interventions
Interventions:
*Risk Screen - Suicide Last Done: 08/18/25 08:19
*Neglect/Abuse Screening Last Done: 08/18/25 08:19
*ED COVID-19 Vaccine History Last Done: 08/18/25 08:19
*ED Influenza Vaccine History Last Done: 08/18/25 08:19
Discharge Date and Time
Print Language: SUDANESE
[2025-08-18 08:34] VITALS: BP 112/86
[2025-08-18 09:00] VITALS: BP 113/80
[2025-08-18] MEDS: TORADOL 15 MG IV (09:01)
[2025-08-18 09:15] LABS: Hematocrit 41.7 % (39.0-52.0); Hemoglobin 14.3 g/dL (13.0-18.0); Mean Corp Hgb Conc. 34.3 g/dL (33.0-37.0); Mean Corpuscular Volume 90.5 fL (80.0-94.0); Nucleated Red Blood Cells % 0 % (-); Platelet Count 224 10^3/uL (130-400); Red Cell Dist. Width 12.1 % (11.5-14.5)
[2025-08-18 09:27] LABS: D-Dimer 0.41 ug/mlFEU (0.00-0.50)
[2025-08-18 09:31] LABS: ALT (SGPT) 22 U/L (0-50); AST (SGOT) 21 U/L (17-59); Albumin 4.2 g/dl (3.5-5.0); Alkaline Phosphatase 54 U/L (38-126); Blood Urea Nitrogen 16 mg/dl (9-20); Calcium 9.1 mg/dl (8.4-10.2); Carbon Dioxide 27 mmol/L (22-30); Chloride 104 mmol/L (98-107); Glucose 104 mg/dl (70-99); Magnesium 1.9 mg/dl (1.6-2.3); Potassium 4.5 mmol/L (3.5-5.1); Sodium 135 mmol/L (135-145); Total Protein 6.6 g/dl (6.3-8.2); eGFR > 60.00
[2025-08-18 09:39] LABS: Troponin I < 0.012 ng/ml
== END 2025-08-18 10:00 | disposition home or self-care (01) ==
LOC: EMR 08:16
PROVIDERS: EMERGENCY PHYSICIAN Emergency Medicine; FAMILY PHYSICIAN Physician Assistant Medical
DX: R07.89 Other chest pain (principal); G47.33 Obstructive sleep apnea (adult) (pediatric); I25.10 Atherosclerotic heart disease of native coronary artery without angina pectoris; I34.0 Nonrheumatic mitral (valve) insufficiency; Z98.890 Other specified postprocedural states
CPT/HCPCS: 99285; 96374; 71046; 80053; 83735; 84484; 85025; 85379; 93005

== ENCOUNTER → 2025-10-03 15:17 | Outpatient (REF) | payer OTHER, SELFPAY | LOC: MRI 3T 15:17 | PROVIDERS: ATTENDING PHYSICIAN Specialist; FAMILY PHYSICIAN Physician Assistant Medical | DX: R97.20 Elevated prostate specific antigen [PSA] (principal) | CPT/HCPCS: 72197; A9575 ==